=== PATIENT | male | born 1940 | race Caucasian/White ===

== ENCOUNTER 2017-05-17 14:55 | Inpatient (IN) ==
[2017-05-17] MEDS ORDERED: SALINE FLUSH 10ml SYRINGE IVF PRN (15:06)
--- NOTE | 2017-05-17 15:09 | Emergency Department Report ---
Dizziness HPI - General Chief Complaint: Dizziness Stated Complaint: near syncope Time Seen by Provider: 05/17/17 15:06 Source: patient, EMS - History of Present Illness HPI Narrative: Sudden onset of dizziness while driving. Patient does have a history of atrial fibrillation and is anticoagulated on xeralto and also takes sotalol. 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 He apparently was driving with his in the vehicle, started feeling dizzy and stopped the car and notified EMS who brought him to the ER. On scene, EMS reports patient was orthostatic with a 20 mm drop in systolic pressure from sitting to standing. Upon arrival to the ED orthostatics were repeated with blood pressure 117 to 111. Heart rate is 115-130 and atrial fib. EKG shows atrial fibrillation with RVR and RBBB which appears to be on previous EKG. Patient denies history of VT or stents. Patient was started on a 500 ml NS bolus and given cardizem 10 mg IV shortly after arrival to the ED. Heart rate slowed somewhat to 105-110 and patient did state that he was feeling better. Will obtain the lab results and call Dr Farhat. RODRIGUEZ complaint: dizziness Onset (ago): minute(s) Timing: sudden onset Description: lightheadedness History of similar episodes: Yes History of trauma: No Severity: moderate Exacerbating factors: movement - Related Data Home Medications Medication Instructions Recorded Confirmed Pravastatin Sodium 20 mg PO HS #0 01/21/12 05/17/17 Lisinopril 5 mg PO DAILY #0 02/04/14 05/17/17 Nitroglycerin [Nitrostat] 1 tab SL Q5MIN3 PRN #0 02/05/14 05/17/17 Furosemide 40 mg PO BID #0 tab 09/14/16 05/17/17 Potassium Chloride 20 meq PO BIDWM #0 09/14/16 05/17/17 Sotalol [Betapace] 120 mg PO BID #0 09/14/16 05/17/17 Calcium Citrate/Vitamin D3 2 tab PO DAILY 05/17/17 05/17/17 [Calcium Citrate-Vit D3 Caplet] Rivaroxaban [Xarelto] 20 mg PO DAILY 05/17/17 05/17/17 Allergies Allergy/AdvReac Type Severity Reaction Status Date / Time shellfish derived Allergy Unknown ITCHING, Verified 05/17/17 15:01 SWELLING Review of Systems All systems: reviewed and negative except as stated Constitutional: Reports: as per HPI, weakness (generalized ). Denies: fever, chills Eyes: Denies: eye pain, eye discharge ENT: Denies: ear pain, throat pain Cardiovascular: Denies: chest pain, palpitations, dyspnea on exertion Respiratory: Denies: cough, dyspnea, wheezes, hemoptysis Gastrointestinal: Denies: abdominal pain, nausea, vomiting Genitourinary: Denies: urgency, dysuria Musculoskeletal: Denies: back pain, joint swelling Neurological: Denies: headache, weakness, numbness, paresthesias PFSH Patient Stated Medical History Other HEENT Yes: WEARS GLASSES Cardiac Arrhythmia Yes: AFIB Hypertension Yes Sleep Apnea Yes Clinic Medical History Atrial fibrillation with RVR (Acute Medical) Course Course Narrative: 1600 Patient received 10 mg cardizem. HR continues at 105-120. Dr Blake would like patient to have 15 mg IV cardizem if blood pressure allows. and take his oral sotalol and cardizem. Patient will be admitted to hospitalist system. 1630; Heart rate is 98-102 ; blood pressure is 98 sys; will hold IV cardizem. - Reevaluation(s) Reevaluation #1: Heart rate improved some after cardizem and is at 105-110. Patient does state that his dizziness which had been present upon arrival is better. Continues to denies chest pain. - Consultations Consultation #1: Dr Blake Time: 16:00 (would like patient admitted to hospitalist service if possible /he will consult . Would like patient to receive a total of 15 mg cardizem if remains in RVR and would like him to also have po sotalol 120 mg and cardizem 180 mg po now. ) Consultation #2: Dr Pierre Time: 16:05 (will admit) Vital Signs Temperature 97.8 F 05/17/17 15:01 Pulse Rate 127 H 05/17/17 15:01 Respiratory Rate 19 05/17/17 15:01 Blood Pressure 114/69 05/17/17 15:01 Pulse Oximetry 93 05/17/17 15:01 Temperature 97.8 F 05/17/17 15:01 Pulse Rate 119 H 05/17/17 16:18 Respiratory Rate 19 05/17/17 15:01 Blood Pressure 117/59 05/17/17 15:17 Pulse Oximetry 93 05/17/17 15:01 Dizziness - Medical Records Attestation: I reviewed the patient's medical records. - Lab Data Result diagrams: 05/17/17 15:21 05/17/17 15:21 Lab Results 05/17/17 05/17/17 Range/Units 15:21 15:21 WBC 7.1 (4.5-11.0) T/MM3 Corrected WBC Cancelled RBC 5.24 (4.50-5.90) M/MM3 Hgb 15.5 (13.5-17.5) GM/DL Hct 46.4 (41-53) % MCV 88.5 (80-100) UM3 MCH 29.6 (26-34) UUG MCHC 33.4 (31-37) GM/DL RDW Std Deviation 40.6 (36.9-50.2) FL Plt Count 225 (130-400) T/MM3 MPV 9.1 L (9.4-12.4) UM3 Immature Gran % (Auto) 0.3 (0.0-0.5) % Neut % (Auto) 63.1 (33-66) % Lymph % (Auto) 22.7 L (23-45) % [place] % (Auto) 11.5 H (0-9.0) % Eos % (Auto) 2.0 (0-4) % Baso % (Auto) 0.4 (0-2) % Neut # (Auto) 4.5 (1.8-7.7) T/MM3 Lymph # (Auto) 1.6 (1-4.8) T/MM3 [place] # (Auto) 0.8 (0-0.8) T/MM3 Eos # (Auto) 0.1 (0-0.5) T/MM3 Baso # (Auto) 0.0 (0-0.2) T/MM3 Abs Immat Gran (auto) 0.02 (0.00-0.03) T/MM3 Neutrophils % (Manual) Cancelled Band Neutrophils % Cancelled Lymphocytes % (Manual) Cancelled Reactive Lymphs % Cancelled Monocytes % (Manual) Cancelled Eosinophils % (Manual) Cancelled Basophils % (Manual) Cancelled Metamyelocytes % Cancelled Myelocytes % Cancelled Promyelocytes % Cancelled Blast Cells % Cancelled Neutrophils # (Manual) Cancelled Band Neutrophils # Cancelled Lymphocytes # (Manual) Cancelled Abs React Lymphs (Man) Cancelled Monocytes # (Manual) Cancelled Eosinophils # (Manual) Cancelled Basophils # (Manual) Cancelled Metamyelocytes # Cancelled Myelocytes # Cancelled Promyelocytes # Cancelled Plasma Cell # (Manual) Cancelled Nucleated RBCs Cancelled Hypersegmented Neuts Cancelled Hyposegmented Neuts Cancelled Hypogranular Neuts Cancelled Prolymphocytes Cancelled Blast Cells # Cancelled Plasma Cells Cancelled Smudge Cells Cancelled Toxic Granulation Cancelled Toxic Vacuolation Cancelled Dohle Bodies Cancelled Coni Rods Cancelled Clumped Platelets Cancelled Giant Platelets Cancelled Dimorphic RBCs Cancelled Polychromasia Cancelled Hypochromasia Cancelled Poikilocytosis Cancelled Basophilic Stippling Cancelled Anisocytosis Cancelled Microcytosis Cancelled Macrocytosis Cancelled Spherocytes Cancelled Pappenheimer Bodies Cancelled Sickle Cells Cancelled Target Cells Cancelled Tear Drop Cells Cancelled Ovalocytes Cancelled Stomatocytes Cancelled Helmet Cells Cancelled [place] Bodies Cancelled [place] Rings Cancelled [place] Cells Cancelled Crenated Cell Cancelled Acanthocytes (Spur) Cancelled Rouleaux Cancelled Schistocytes Cancelled RBC Morph Comment Cancelled Turbidity < 20 (0-20) Sodium 139 (134-144) MEQ/L Potassium 4.1 (3.6-5) MEQ/L Chloride 105 (98-107) MEQ/L Carbon Dioxide 26 (22-30) MEQ/L Anion Gap 8 (5-15) MEQ/L BUN 20.0 (9-20) MG/DL Creatinine 1.2 (0.8-1.5) MG/DL GFR Calculation 59 BUN/Creatinine Ratio 17 (6-26) RATIO Glucose 98 (75-110) MG/DL Calculated Osmolality 271 (261-280) MOSM/KG Calcium 9.4 (8.4-10.2) MG/DL Total Bilirubin 0.30 (0.20-1.30) MG/DL Icterus Index < 2 (0-7) AST 33 (17-59) U/L ALT 58 (21-72) U/L Alkaline Phosphatase 89 (38-126) U/L Troponin I < 0.012 (0-0.12) ng/ml Total Protein 7.0 (6.3-8.2) G/DL Albumin 4.1 (3.5-5.0) G/DL Globulin 2.9 (2.4-3.6) G/DL Albumin/Globulin Ratio 1.4 (1.1-2.2) RATIO Specimen Hemolysis 20 (0-25) - Radiology Data Attestation: I reviewed the patient's radiology results. Disposition Clinical Impression: Atrial fibrillation with RVR Disposition: 02 To [facility] Time of Disposition: 16:14 - [facility]
[2017-05-17] MEDS ORDERED: DiltiaZEM 25 MG/5 ML INJECTION IVP ONE ×4 (15:18→16:20)
--- NOTE | 2017-05-17 15:50 | XRay Report ---
Indication: dizziness PROCEDURE: XR chest 1V: Encounter: Initial Comparison: Chest x-ray and chest CT dated September 14, 2016 Findings: Rectangular 1.3 cm density projecting over the right upper lung field is new from the prior study. This projects between the sixth and seventh posterior ribs. Prior right basilar airspace opacity has cleared. The prior right lower lobe pulmonary nodule seen on CT is not visible radiographically. No pleural effusion or pneumothorax. Cardiac silhouette remains enlarged. Left pacemaker. Mediastinal contours are stable. Pulmonary vascularity appears normal. Impression: 1. No pneumonia or congestive failure. 2. Possible new right upper lobe pulmonary nodule versus artifact or object external to the patient. Given the concerning appearing right lower lobe pulmonary nodule seen on the prior CT follow-up chest CT is recommended if this has not been performed recently. .
[2017-05-17] MEDS ORDERED: SOTALOL 120 MG TABLET PO ONE (16:08)
--- OUTSIDE RECORDS SUMMARY | 2017-05-17 16:32 | External Medical Summary | Referral Summary ---
:1940 Author Organization [facility] Address [address] [place] [address] [place] Jo[place] [id number] Care Team Providers Name Role Phone Abram Milligan Primary Care Physician Encounter VC Date(s): 11/17/14 - 11/17/14 [facility] [address] [place] [address] [place] [id number]- Discharge Diagnosis: Atrial fibrillation Discharge Diagnosis: Obstructive sleep apnea Discharge Diagnosis: Hypercholesterolemia. Discharge Diagnosis: Essential hypertension Discharge Disposition: 01-Home or Self Care Attending Physician: Abram Milligan MD Admitting Physician: Abram Milligan MD Vital Signs Most recent to oldest [Reference Range]: 1 Temperature Tympanic [36.6-38.1 degC] 36.1 degC *LOW* (11/17/14 9:57 AM) Peripheral Pulse Rate [60-100 bpm] 74 bpm (11/17/14 9:57 AM) Respiratory Rate [14-20 br/min] 16 br/min (11/17/14 9:57 AM) Blood Pressure [90-140/60-90 mmHg] 128/78 mmHg (11/17/14 9:57 AM) SpO2 94 % (11/17/14 9:57 AM) Problem List Condition Effective Dates Status Health Status Informant Pig bite to left calf(Confirmed) 1981 Active Atrial fibrillation(Confirmed) 2007 Active Benign essential Active hypertension(Confirmed) Cardiac dysrhythmia, Active unspecified(Confirmed) Diverticulosis(Confirmed) Active Long-term (current) use of Active anticoagulants(Confirmed) Hypothyroidism(Confirmed) Active Obesity(Confirmed) Active OA (osteoarthritis) of lower Active leg(Confirmed) Pure hypercholesterolemia(Confirmed) Active Elevated PSA(Confirmed) Active Sick sinus syndrome(Confirmed) Active Sleep apnea(Confirmed) Active Allergies, Adverse Reactions, Alerts Substance Reaction Severity Status shellfish Active Medications calcium (as citrate)-vitamin D 200 mg-250 intl units oral tablet tabs, Oral, BID, 0 Refill(s) Start Date: 03/03/14 Status: Orderedcarvedilol 25 mg oral tablet 1 tabs, Oral, BID, 0 Refill(s) Start Date: 01/22/14 Status: Orderedfinasteride 5 mg oral tablet See Instructions, TAKE 1 TABLET ONE TIME DAILY ( NEED MD APPOINTMENT WHEN MEDS RUN OUT), # 90 tabs, 1 Refill(s), eRx: [facility] , TAKE 1 TABLET ONE TIME DAILY ( NEED MD APPOINTMENT WHEN MEDS RUN OUT) Start Date: 03/09/15 Status: Orderedfurosemide 40 mg oral tablet 1 tabs, Oral, Daily, # 90 tabs, 0 Refill(s) Start Date: 01/22/14 Status: Orderedlisinopril 5 mg oral tablet 1 tabs, Oral, Daily, # 90 tabs, 0 Refill(s) Start Date: 01/22/14 Status: Orderedmultivitamin Daily, 0 Refill(s) Start Date: 03/03/14 Status: OrderedNitrostat 0.4 mg sublingual tablet 1 tabs, SubLingual, q5min, as needed for chest pain, # 100 tabs, 0 Refill(s) Start Date: 01/22/14 Status: Orderedpotassium chloride 20 mEq oral tablet, extended release 1 tabs, Oral, Daily, # 30 tabs, 0 Refill(s) Start Date: 01/22/14 Status: Orderedpravastatin 20 mg oral tablet See Instructions, TAKE 1 TABLET EVERY DAY, # 90 tabs, eRx: [facility], TAKE 1 TABLET EVERY DAY Start Date: 04/21/15 Status: OrderedVitamin C 0 Refill(s) Start Date: 03/03/14 Status: Ordered Results No data available for this section Immunizations Vaccine Date Refusal Reason influenza virus vaccine, inactivated 05/18/15 influenza virus vaccine, inactivated 03/04/14 influenza virus vaccine, live 06/10/13 influenza virus vaccine, live 06/05/12 pneumococcal 13-valent conjugate vaccine 05/18/15 pneumococcal 23-polyvalent vaccine 01/05/07 Procedures Procedure Date Related Diagnosis Body Site Cardiac Ablation 2014 Cardioversion1 2014 Ablation2013 Cardiac catheterization 2013 RENE 2014 Pacemaker insertion 10/08/12 Cardioversion3 2010 Colonoscopy 2007 Hernia repair 1993 Cystoscopy 1992 Dilation of urethra 1992 Hernia repair, left inguinal 1992 Lymphangitis 1949 1He had atrial fibrillation that was treated by cardioversion.2Pulmonary vein isolation and left atrial [id number] Social History Social History Type Response Smoking Status Never smoker Assessment and Plan Extracted from: Title: Ambulatory Patient Education Author: Abram Milligan MD Date: 11/17/14 Family Medicine Atrial Fibrillation Atrial fibrillation is a type of irregular heart rhythm (arrhythmia ). During atrial fibrillation, the upper chambers of the heart (atria ) quiver continuously in a chaotic pattern. This causes an irregular and often rapid heart rate. Atrial fibrillation is the result of the heart becoming overloaded with disorganized signals that tell it to beat. These signals are normally released one at a time by a part of the right atrium called the sinoatrial node. They then travel from the atria to the lower chambers of the heart (ventricles ), causing the atria and ventricles to contract and pump blood as they pass. In atrial fibrillation, p arts of the atria outside of the sinoatrial node also release these signals. This results in two problems. First, the atria receive so many signals that they do not have time to fully contract. Second, the ventricles, which can only receive one signal at a time, beat irregularly and out of rhythm with the atria. There are three types of atrial fibrillation: ParoxysmalParoxysmal atrial fibrillation starts suddenly and stops on its own within a week. PersistentPersistent atrial fibrillation lasts for more than a week. It may stop on its own or with treatment. PermanentPermanent atrial fibrillation does not go away. Episodes of atrial fibrillation may lead to permanent atrial fibrillation. Atrial fibrillation can prevent your heart from pumping blood normally. It increases your risk of stroke and can lead to heart failure. CAUSES Heart conditions, including a heart attack, heart failure, coronary artery disease, and heart valve conditions. Inflammation of the sac that surrounds the heart (pericarditis ). Blockage of an artery in the lungs (pulmonary embolism ). Pneumonia or other infections. Chronic lung disease. Thyroid problems, especially if the thyroid is overactive ( hyperthyroidism ). Caffeine, excessive alcohol use, and use of some illegal drugs. Use of some medications, including certain decongestants and diet pills. Heart surgery. defects. Sometimes, no cause can be found. When this happens, the atrial fibrillation is called lone atrial fibrillation. The risk of complications from atrial fibrillation increases if you have lone atrial fibrillation and you are age 60 years or older. RISK FACTORS Heart failure. Coronary artery disease Diabetes mellitus. High blood pressure (hypertension ). Obesity. Other arrhythmias. Increased age. SYMPTOMS A feeling that your heart is beating rapidly or irregularly. A feeling of discomfort or pain in your chest. Shortness of breath. Sudden lightheadedness or weakness. Getting tired easily when exercising. Urinating more often than normal (mainly when atrial fibrillation first begins). In paroxysmal atrial fibrillation, symptoms may start and suddenly stop. DIAGNOSIS Your caregiver may be able to detect atrial fibrillation when taking your pulse. Usually, testing is needed to diagnosis atrial fibrillation. Tests may include: Electrocardiography. During this test, the electrical impulses of your heart are recorded while you are lying down. Echocardiography. During echocardiography, sound waves are used to evaluate how blood flows through your heart. Stress test. There is more than one type of stress test. If a stress test is needed, ask your caregiver about which type is best for you. Chest X-ray exam. Blood tests. Computed tomography (CT). TREATMENT Treating any underlying conditions. For example, if you have an overactive thyroid, treating the condition may correct atrial fibrillation. Medication. Medications may be given to control a rapid heart rate or to prevent blood clots, heart failure, or a stroke. Procedure to correct the rhythm of the heart: Electrical cardioversion. During electrical cardioversion, a controlled, low-energy shock is delivered to the heart through your skin. If you have chest pain, very low pressure blood pressure, or sudden heart failure, this procedure may need to be done as an emergency. Catheter ablation. During this procedure, heart tissues that send the signals that cause atrial fibrillation are destroyed. Maze or minimaze procedure. During this surgery, thin lines of heart tissue that carry the abnormal signals are destroyed. The maze procedure is an open-heart surgery. The minimaze procedure is a minimally invasive surgery. This means that small cuts are made to access the heart instead of a large opening. Pulmonary venous isolation. During this surgery, tissue around the veins that carry blood from the lungs (pulmonary veins) is destroyed. This tissue is thought to carry the abnormal signals. HOME CARE INSTRUCTIONS Take medications as directed by your caregiver. Only take medications that your caregiver approves. Some medications can make atrial fibrillation worse or recur. If blood thinners were prescribed by your caregiver, take them exactly as directed. Too much can cause bleeding. Too little and you will not have the needed protection against stroke and other problems. Perform blood tests at home if directed by your caregiver. Perform blood tests exactly as directed. Quit smoking if you smoke. Do not drink alcohol. Do not drink caffeinated beverages such as coffee, soda, and some teas. You may drink decaffeinated coffee, soda, or tea. Maintain a healthy weight. Do not use diet pills unless your caregiver approves. They may make heart problems worse. Follow diet instructions as directed by your caregiver. Exercise regularly as directed by your caregiver. Keep all follow-up appointments. PREVENTION The following substances can cause atrial fibrillation to recur: Caffeinated beverages. Alcohol. Certain medications, especially those used for breathing problems. Certain herbs and herbal medications, such as those containing ephedra or ginseng. Illegal drugs such as cocaine and amphetamines. Sometimes medications are given to prevent atrial fibrillation from recurring. Proper treatment of any underlying condition is also important in helping prevent recurrence. SEEK MEDICAL CARE IF: You notice a change in the rate, rhythm, or strength of your heartbeat. You suddenly begin urinating more frequently. You tire more easily when exerting yourself or exercising. SEEK IMMEDIATE MEDICAL CARE IF: You develop chest pain, abdominal pain, sweating, or weakness. You feel sick to your stomach (nauseous ). You develop shortness of breath. You suddenly develop swollen feet and ankles. You feel dizzy. You face or limbs feel numb or weak. There is a change in your vision or speech. MAKE SURE YOU: Understand these instructions. Will watch your condition. Will get help right away if you are not doing well or get worse. Document Released: 07/03/2006 Document Revised: 10/28/2013 Document Reviewed: 08/13/2013 [employer] Patient Information 2014 [employer]. Follow Up With: Where: When: Abram Milligan [address] [place] [address] Drive; [facility] [place] [id number] adQ (1ViS In 3 months 02/17/2015 Comments: Extracted from: Title: Office Visit Note Author: Abram Milligan MD Date: 11/17/14 Assessment/Plan Atrial fibrillation This has not recurred since his last ablation treatment. He continues to follow up with Dr. Blake. Ordered: Office Visit Level 4 Est 95110 Essential hypertension This remains well controlled. He will continue his same medication. Ordered: Office Visit Level 4 Est 29452 Hypercholesterolemia. He will continue his same medication. Ordered: Office Visit Level 4 Est 74299 Obstructive sleep apnea He will continue CPAP.
--- OUTSIDE RECORDS SUMMARY | 2017-05-17 16:32 | External Medical Summary | Referral Summary ---
:1940 Author Organization [facility] Address [address] [place] [address] [place] [id number] Care Team Providers Name Role Phone Abram Milligan Primary Care Physician Encounter VC Date(s): 03/02/15 - 03/02/15 [facility] [address] [place] [address] [place] [id number]- Discharge Diagnosis: Rising PSA level Discharge Disposition: 01-Home or Self Care Attending Physician: Aime Sol JR, MD Admitting Physician: Aime Sol JR, MD Referring Physician: Abram Milligan MD Vital Signs Most recent to oldest [Reference Range]: 1 Peripheral Pulse Rate [60-100 bpm] 97 bpm (03/02/15 2:38 PM) Blood Pressure [90-140/60-90 mmHg] 122/78 mmHg (03/02/15 2:38 PM) Problem List Condition Effective Dates Status Health [...] OUT), # 90 tabs, 1 Refill(s), eRx: [facility] , TAKE 1 TABLET [...] TABLET EVERY DAY, # 90 tabs, eRx: [facility], TAKE 1 TABLET EVERY [...] Body Site Cardiac Ablation 2014 Cardioversion1 2014 Ablation2 2013 Cardiac catheterization 2013 RENE 2013 Pacemaker insertion 10/08/12 Cardioversion3 2010 Colonoscopy 2006 Hernia repair 1993 Cystoscopy 1992 Dilation of urethra 1992 Hernia repair, left inguinal 1992 Lymphangitis 194 1He had atrial fibrillation that was treated by cardioversion.2Pulmonary vein isolation and left atrial [id number] Social History Social History Type Response Smoking Status Never smoker Assessment and Plan Extracted from: Title: Ambulatory Patient Education Author: Aime Sol JR, MD Date: Follow Up With: Where: When: Abram Milligan [address]; [place] [address] Business (1) Within 3 to 5 days Comments: Follow Up With: Where: When: Aime Sol [address]; [place] [address] Business (1) In 1 month 04/02/2015 Comments: Extracted from: Title: Office Visit Note Author: Aime Sol JR, MD Date: 03/02/15 Assessment/Plan Rising PSA level continue taking finasteride. Patient was given instruction to get his blood test properly (PSA). If his PSA continues to rise he is going to be needing a prostate biopsy. Long-standing history of hypertension takes furosemide and lisinopril. Long-standing history of heart disease and he takes carvedilol and diltiazem. Continue taking the pravastatin for hypercholesterolemia. Will recheck in my office in 6 months, PSA a week before next visit. 15 minute face to face visit with 2/3 of the visit devoted to counseling. Ordered: Office Visit Level 3 Est 06857
--- OUTSIDE RECORDS SUMMARY | 2017-05-17 16:32 | External Medical Summary | Referral Summary ---
:1940 Author Organization [facility] Address [address] [place] [address] JOS[place] Jvoel [address] Care Team Providers Name Role Phone Abram Milligan Primary Care Physician Encounter VC ANNIE [id number] Date(s): 05/18/15 - 05/18/15 [facility] [address] [place] [address] J[place] Jovel [phone]- Discharge Diagnosis: Obstructive sleep apnea Discharge Diagnosis: PAF (paroxysmal atrial fibrillation) Discharge Diagnosis: Essential hypertension Discharge Diagnosis: Encounter for immunization Discharge Diagnosis: Hypercholesterolemia Discharge Diagnosis: Elevated PSA Discharge Disposition: 01-Home or Self Care Attending Physician: Abram Milligan MD Admitting Physician: Abram Milligan MD Vital Signs Most recent to oldest [Reference Range]: 1 Temperature Tympanic [36.6-38.1 degC] 36.4 degC *LOW* (05/18/15 1:12 PM) Peripheral Pulse Rate [60-100 bpm] 97 bpm (05/18/15 1:12 PM) Respiratory Rate [14-20 br/min] 20 br/min (05/18/15 1:12 PM) Blood Pressure [90-140/60-90 mmHg] 130/92 mmHg (05/18/15 1:12 PM) SpO2 92 % (05/18/15 1:12 PM) Problem List Condition Effective Dates Status [...] OUT), # 90 tabs, 1 Refill(s), eRx: [facility] , TAKE 1 TABLET [...] TABLET EVERY DAY, # 90 tabs, eRx: [facility], TAKE 1 TABLET EVERY [...] Diagnosis Body Site Cardiac Ablation 2014 Cardioversion1 2015 Ablation2 2013 Cardiac catheterization 2013 REEN 2013 Pacemaker insertion 10/08/12 Cardioversion3 2010 Colonoscopy 2006 Hernia repair 1993 Cystoscopy 1992 Dilation of urethra 1992 Hernia repair, left inguinal 1991 Lymphangitis 1948 1He had atrial fibrillation that was treated by cardioversion.2Pulmonary vein isolation and left atrial [id number] Social History Social History Type Response Smoking Status Never smoker Assessment and Plan Extracted from: Title: Ambulatory Patient Education Author: Abram Milligan MD Date: Family Medicine Hypertension Hypertension, commonly called high blood pressure, is when the force of blood pumping through your arteries is too strong. Your arteries are the blood vessels that carry blood from your heart throughout your body. A blood pressure reading consists of a higher number over a lower number, such as 110/72. The higher number (systolic) is the pressure inside your arteries when your heart pumps. The lower n umber (diastolic) is the pressure inside your arteries when your heart relaxes. Ideally you want your blood pressure below 120/80. Hypertension forces your heart to work harder to pump blood. Your arteries may become narrow or stiff. Having hypertension puts you at risk for heart disease, stroke, and other problems. RISK FACTORS Some risk factors for high blood pressure are controllable. Others are not. Risk factors you cannot control include: Race. You may be at higher risk if you are . Age. Risk increases with age. Gender. Men are at higher risk than women before age 45 years. After age 65, women are at higher risk than men. Risk factors you can control include: Not getting enough exercise or physical activity. Being overweight. Getting too much fat, sugar, calories, or salt in your diet. Drinking too much alcohol. SIGNS AND SYMPTOMS Hypertension does not usually cause signs or symptoms. Extremely high blood pressure (hypertensive crisis) may cause headache, anxiety, shortness of breath , and nosebleed. DIAGNOSIS To check if you have hypertension, your health care provider will measure your blood pressure while you are seated, with your arm held at the level of your heart. It should be measured at least twice us ing the same arm. Certain conditions can cause a difference in blood pressure between your right and left arms. A blood pressure reading that is higher than normal on one occasion does not mean that you need treatment. If one blood pressure reading is high, ask your health care provider about having it checked again. TREATMENT Treating high blood pressure includes making lifestyle changes and possibly taking medicine. Living a healthy lifestyle can help lower high blood pressure. You may need to change some of your habits. Lifestyle changes may include: Following the DASH diet. This diet is high in fruits, vegetables, and whole grains. It is low in salt, red meat, and added sugars. Getting at least 2 hours of brisk physical activity every week. Losing weight if necessary. Not smoking. Limiting alcoholic beverages. Learning ways to reduce stress. If lifestyle changes are not enough to get your blood pressure under control , your health care provider may prescribe medicine. You may need to take more than one. Work closely with your health care provider to understand the risks and benefits. HOME CARE INSTRUCTIONS Have your blood pressure rechecked as directed by your health care provider. Take medicines only as directed by your health care provider. Follow the directions carefully. Blood pressure medicines must be taken as prescribed. The medicine does not work as well when you skip doses. Skipping doses also puts you at risk for problems. Do not smoke. Monitor your blood pressure at home as directed by your health care provider. SEEK MEDICAL CARE IF: You think you are having a reaction to medicines taken. You have recurrent headaches or feel dizzy. You have swelling in your ankles. You have trouble with your vision. SEEK IMMEDIATE MEDICAL CARE IF: You develop a severe headache or confusion. You have unusual weakness, numbness, or feel faint. You have severe chest or abdominal pain. You vomit repeatedly. You have trouble breathing. MAKE SURE YOU: Understand these instructions. Will watch your condition. Will get help right away if you are not doing well or get worse. Document Released: 07/03/2006 Document Revised: 11/17/2014 Document Reviewed: 04/25/2014 ExitCare Patient Information 2015 [employer]. This information is not intended to replace advice given to you by your health care provider. Make sure you discuss any questions you have with your health care provider. Follow Up With: Where: When: Abram Milligan [address]; [facility] [place] [address] [employer] ([employer] In 4 months 09/16/2015 Comments: Extracted from: Title: Office Visit Note Author: Abram Milligan MD Date: 05/18/15 Assessment/Plan Elevated PSA He continues follow-up with Dr. Sol. Essential hypertension He will continue his present medication. Hypercholesterolemia Lab will be rescheduled in June. Ordered: Comprehensive Metabolic Panel Creatine Kinase Lipid Panel TSH 3rd Generation Immunization due He will receive influenza and Prevnar 13 immunizations today. Ordered: influenza virus vaccine, inactivated, 0.5 mL, IntraMuscular, Once, First Dose : 05/18/15 13:33:00 CUSTOM FRAMING SPECIALIST, Stop Date: 05/18/15 13:33:00 CUSTOM [employer]AMING SPECIALIST pneumococcal 13-valent conjugate vaccine, 0.5 mL, IntraMuscular, Once, First Dose: 05/18/15 14:00:00 CUSTOM FRAMING SPECIALIST, Stop Date: 05/18/15 14:00:00 CUSTOM FRAMING SPECIALIST, Form: Syringe Obstructive sleep apnea PAF (paroxysmal atrial fibrillation)
--- OUTSIDE RECORDS SUMMARY | 2017-05-17 16:34 | External Medical Summary | Referral Summary ---
:1940 Author Organization [facility] Address [address] [place] [address] J[place] Jovel [address] Care Team Providers Name Role Phone Abram Milligan Primary Care Physician Encounter VC Date(s): 11/17/14 - 11/17/14 [facility] [address] [place] [address] J[place] Jovel [phone]- Discharge Diagnosis: Atrial fibrillation Discharge Diagnosis: Obstructive [...] OUT), # 90 tabs, 1 Refill(s), eRx: [facility] , TAKE 1 TABLET [...] TABLET EVERY DAY, # 90 tabs, eRx: [facility], TAKE 1 TABLET EVERY [...] by cardioversion.2Pulmonary vein isolation and left atrial [id number] Social History Social History Type Response Smoking [...] Document Reviewed: 08/13/2013 ExitCare Patient Information 2014 [employer]. Follow Up With: Where: When: Abram Milligan [address] [place] [address] Drive; [facility] [place] [address] [employer] ([employer] In 3 months 02/17/2015 Comments: Extracted from: Title: Office Visit Note Author: Abram Milligan MD Date: 11/17/14 Assessment/Plan Atrial fibrillation This has not recurred since his last ablation treatment. He continues to follow up with Dr. Blake. Ordered: Office Visit Level 4 Est 97227 Essential hypertension This remains well controlled. He will continue his same medication. Ordered: Office Visit Level 4 Est 50656 Hypercholesterolemia. He will continue his same medication. Ordered: Office Visit Level 4 Est 30053 Obstructive sleep apnea He will continue CPAP.
--- OUTSIDE RECORDS SUMMARY | 2017-05-17 16:34 | External Medical Summary ---
:1940 Author Organization [employer] Care Team Providers Name Role Phone Carley Butterfield Provider Role Unavailable Allergies, Adverse Reactions, Alerts Substance Reaction Event Type N.K.D.A. Info Not Available Non Drug Allergy Problems Problem Type Condition Code Onset Dates Condition Status Assessment Pacemaker Z95.0 Active Assessment High risk medication use Z79.899 Active Assessment Chronic anticoagulation Z79.01 Active Problem Atrial flutter 427.32 Active Problem Chronic Anticoagulation V58.61 Active Problem Paroxysmal atrial fibrillation I48.0 Active Assessment Paroxysmal atrial fibrillation I48.0 Active Assessment Typical atrial flutter I48.3 Active Problem High Risk Med V58.69 Active Problem Atrial fibrillation 427.31 Active Medications Medication Code Code Instructions Start End Status Dosage System Date Date Vitamin C [facility] 48123-28 500 MG Orally not [place] 509 [place] [address]-99 5 MG Orally Once 1 tablet 66-01 a day Furosemide NDC 06993-21 40 MG Orally 1 tablet 99-25 Once [place] ([place] [address]-66 120 MG Orally Jul 21, 1 tablet 24-01 Twice a day 2015 [place] [address]-44 5 MG Orally Once 1 tablet 55-01 a day Multiple Vitamin NDC 50316-50 Orally not defined 30-30 Potassium NDC 0 20 meq orally qd 1 tablet [place] [address]-01 600-200 MG-UNIT 1 tablet 56-52 Orally [place] [address]-77 20 MG Orally 1 tablet 76-01 Once a [place] [address]-45 180 MG Orally 1 capsule Beads 13-03 [place] [address]-63 0.4 MG 1 tablet 97-25 Sublingual under the tongue and allow [place] [address]-89 20 MG Orally 1 tablet Sodium 01-10 Once a day Procedures Procedure Coding System Code Date Office Visit, Est Pt., Level 4 CPT-4 27573 February 02, 2016 Ofc Program PM Dual, Staff CPT-4 61698 February 02, 2016 ELECTROCARDIOGRAM, COMPLETE CPT-4 07846 February 02, 2016 Vital Signs Date/Time: February 02, 2016 BMI 46.02 Index Weight 330 lbs Height 71 in Cardiac Monitoring Heart Rate 98 /min Oximetry 95 % Blood Pressure Diastolic 80 mm Hg Blood Pressure Systolic 124 mm Hg Results Name Result Date Reference Range Unit Abnormality Flag AtriaECW Summary Purpose eClinicalWorks Submission
--- OUTSIDE RECORDS SUMMARY | 2017-05-17 16:34 | External Medical Summary ---
:1940 Author Organization [employer] Care Team Providers Name Role Phone Carley Butterfield Provider Role Unavailable Allergies, Adverse Reactions, Alerts Substance Reaction Event Type N.K.D.A. Info Not Available Non Drug Allergy Problems Problem Type Condition Code Onset Dates Condition Status Assessment High risk medication use Z79.899 Active Assessment Chronic anticoagulation Z79.01 Active Problem Atrial flutter 427.32 Active Problem Chronic Anticoagulation V58.61 Active Problem Paroxysmal atrial fibrillation I48.0 Active Assessment Paroxysmal atrial fibrillation I48.0 Active Assessment Typical atrial flutter I48.3 Active Problem High Risk Med V58.69 Active Problem Atrial fibrillation 427.31 Active Medications Medication Code Code Instructions Start End Status Dosage System Date Date Diltiazem HCl ER [facility] 87572-35 180 MG Orally 1 capsule Beads 13-03 Once a day Potassium [facility] 56421-29 20 meq orally 1 tablet chloride 81-[address] [facility] 67690-44 25 MG Orally 1 tablet 96-01 Twice a day with food Pravastatin [facility] 23662-16 20 MG Orally 1 tablet Sodium 01-10 Once a day Flecainide [facility] 05722-40 100 MG Orally 1 tablet Acetate 11-21 every [address] [facility] 52934-02 5 MG Orally Once 1 tablet 66-01 a day Finasteride [facility] 06823-81 5 MG Orally Once 1 tablet 55-01 a day Nitroglycerin [facility] 10362-74 0.4 MG 1 tablet 97-25 Sublingual under the tongue [place] [address]-62 40 MG Orally 1 tablet 99-25 Twice a day Sotalol HCl (AF) [facility] 13408-11 120 MG Orally Jul 21, 1 tablet 24-01 Twice a day [address] [facility] 10464-91 Orally not defined 30-[address] [facility] 59950-28 500 MG Orally not defined 509 Calcium + D [facility] 61063-73 600-200 MG-UNIT 1 tablet 56-52 Orally Once a with food day Xarelto [facility] 38385-00 20 MG Orally 1 tablet 76-01 Once a day with food Procedures Procedure Coding System Code Date Office Visit, Est Pt., Level 4 CPT-4 84326 Jul 21, 2015 Ofc Program PM Dual, Staff CPT-4 30053 Jul 21, 2015 ELECTROCARDIOGRAM, COMPLETE CPT-4 37910 Jul 21, 2015 Vital Signs Date/Time: Jul 21, 2015 BMI 47.28 Index Weight 339 lbs Height 71 in Cardiac Monitoring Heart Rate 96 /min Oximetry 95 % Blood Pressure Diastolic 70 mm Hg Blood Pressure Systolic 102 mm Hg Results Name Result Date Reference Range Unit Abnormality Flag Atria ECG Summary Purpose eClinicalWorks Submission
--- OUTSIDE RECORDS SUMMARY | 2017-05-17 16:34 | External Medical Summary | Referral Summary ---
:1940 Author Organization [facility] Address [address] [place] [address] [place] Jovel [address] Care Team Providers Name Role Phone Chicho Aldana Primary Care Physician Encounter VC Date(s): 09/04/15 - 09/04/15 [facility] [address] [place] [address] [place] [address] [place] Discharge Diagnosis: Coronary artery disease Discharge Diagnosis: Atrial fibrillation Discharge Diagnosis: BPH with elevated PSA Discharge Diagnosis: Benign essential hypertension Discharge Diagnosis: Hypercholesterolemia Discharge Diagnosis: Obesity Discharge Diagnosis: Stable angina Discharge Disposition: 01-Home or Self Care Attending Physician: Aime Sol JR, MD Admitting Physician: Aime Sol JR, MD Vital Signs Most recent to oldest [Reference Range]: 1 Peripheral Pulse Rate [60-100 bpm] 92 bpm (09/04/15 2:05 PM) Blood Pressure [90-140/60-90 mmHg] 122/88 mmHg (09/04/15 2:05 PM) Problem List Condition Effective Dates Status Health Status Informant Pig bite to left calf(Confirmed) 1981 Active Atrial fibrillation(Confirmed) 2007 Active Benign essential Active hypertension(Confirmed) Chronic kidney disease Active (CKD)(Confirmed) Cardiac dysrhythmia, Active unspecified(Confirmed) Diverticulosis(Confirmed) Active Long-term (current) use of Active anticoagulants(Confirmed) Hypothyroidism(Confirmed) Active Elevated blood sugar(Confirmed) Active Obesity(Confirmed) Active OA (osteoarthritis) of lower Active leg(Confirmed) Pure hypercholesterolemia(Confirmed) Active Elevated PSA(Confirmed) Active Sick sinus syndrome(Confirmed) Active Sleep apnea(Confirmed) Active Allergies, Adverse Reactions, Alerts Substance Reaction Severity Status shellfish Active Medications calcium (as citrate)-vitamin D 200 mg-250 intl units oral tablet tabs, Oral, BID, 0 Refill(s) Start Date: 03/03/14 Status: Ordereddiltiazem 120 mg oral tablet mg tabs, Oral, TID, 0 Refill(s) Start Date: 09/04/15 Status: Orderedfinasteride 5 mg oral tablet See Instructions, TAKE 1 TABLET ONE TIME DAILY ( NEED MD APPOINTMENT WHEN MEDS RUN OUT), # 90 tabs, 1 Refill(s), eRx: [facility] , TAKE 1 TABLET [...] 01/22/14 Status: Orderedpravastatin 20 mg oral tablet 20 mg 1 tabs, Oral, Daily, X 90 days, # 90 tabs, 1 Refill(s), Pharmacy: [facility], 1 tabs Oral Daily,x90 days Start Date: 07/29/15 Stop Date: 01/25/16 Status: Orderedsotalol 120 mg oral tablet 120 mg 1 tabs, Oral, BID, # 60 tabs, 0 Refill(s) Start Date: 07/28/15 Status: OrderedVitamin C 0 Refill(s) Start Date: 03/03/14 Status: OrderedXarelto 20 mg oral tablet 20 mg 1 tabs, Oral, qPM, # 30 tabs, 0 Refill(s) Start Date: 09/04/15 Status: Ordered Results No data available for this section Immunizations Vaccine Date Refusal Reason influenza virus vaccine, inactivated 05/18/15 influenza virus vaccine, inactivated 03/04/14 influenza virus vaccine, live 06/10/13 influenza virus vaccine, live 06/05/12 pneumococcal 13-valent conjugate vaccine 05/18/15 pneumococcal 23-polyvalent vaccine 01/05/07 Procedures Procedure Date Related Diagnosis Body Site Cardiac Ablation 2014 Cardioversion1 2015 Ablation2 2013 Cardiac catheterization 2013 RENE 2013 Pacemaker insertion 10/08/12 Cardioversion3 2010 Colonoscopy 2006 Hernia repair 1993 Cystoscopy 1992 Dilation of urethra 1992 Hernia repair, left inguinal 1991 Lymphangitis 1949 1He had atrial fibrillation that was treated by cardioversion.2Pulmonary vein isolation and left atrial [id number] Social History Social History Type Response Smoking Status Never smoker Assessment and Plan Extracted from: Title: Ambulatory Patient Education Author: Aime Sol JR, MD Date: Follow Up With: Where: When: Chicho Aldana [address] [place] [address] Drive; [place] [address] Business (1) Within 3 to 5 days Comments: Follow Up With: Where: When: Aime Carbajal[address]; [place] [address] Business (1) In 6 months 03/04/2016 Comments: Extracted from: Title: Office Visit Note Author: Aime Sol JR, MD Date: 09/04/15 Assessment/Plan 1.BPH with elevated PSA His PSA is 4.7 which is slightlyabove normal. Denies any family history of prostate cancer. There is no prostatic nodule felt. Patientis presently taking finaster iglesia. Patient is voiding well. I to see him again in 6 months PSA a week before next visit or to come and see me soonerif having troubles with urination. Proper instruction was given to the patient with a proper collection of the PSA 2.Atrial fibrillation Continue carvediloland diltiazem 3.Obesity Patient had lost 10 pounds already since I saw him 6 months ago. 4.Benign essential hypertension Couldn'tcontinue lisinopril pyelogram tabletdaily, Ordered: Office Visit Level 3 Est 60171 5.Coronary artery disease Continue carvedilol Ordered: Office Visit Level 3 Est 67491 6.Stable angina Continue Nitrostat 0.4 mg sublingual when necessary Ordered: Office Visit Level 3 Est 47345 7.Hypercholesterolemia Continue pravastatin 20 mg tablet daily Ordered: Office Visit Level 3 Est 19415
--- OUTSIDE RECORDS SUMMARY | 2017-05-17 16:35 | External Medical Summary | Referral Summary ---
:1940 Author Organization [facility] Address [address] [place] [address] [place] [address] Care Team Providers Name Role Phone Abram Milligan Primary Care Physician Encounter VC Date(s): 11/17/14 - 11/17/14 [facility] [address] [place] [address] [place] [phone]- Discharge Diagnosis: Atrial fibrillation Discharge Diagnosis: Obstructive [...] OUT), # 90 tabs, 1 Refill(s), eRx: [facility] , TAKE 1 TABLET [...] TABLET EVERY DAY, # 90 tabs, eRx: [facility], TAKE 1 TABLET EVERY [...] by cardioversion.2Pulmonary vein isolation and left atrial [id number] Social History Social History Type Response Smoking [...] Document Reviewed: 08/13/2013 ExitCare Patient Information 2014 [employer]. Follow Up With: Where: When: Abram Milligan [address] [place] [address] Drive; Via [facility] [place] [address] [employer] In 3 months 02/17/2015 Comments: Extracted from: Title: Office Visit Note Author: Abram Milligan MD Date: 11/17/14 Assessment/Plan Atrial fibrillation This has not recurred since his last ablation treatment. He continues to follow up with Dr. Blake. Ordered: Office Visit Level 4 Est 54142 Essential hypertension This remains well controlled. He will continue his same medication. Ordered: Office Visit Level 4 Est 21993 Hypercholesterolemia. He will continue his same medication. Ordered: Office Visit Level 4 Est 34721 Obstructive sleep apnea He will continue CPAP.
--- OUTSIDE RECORDS SUMMARY | 2017-05-17 16:35 | External Medical Summary | Referral Summary ---
:1940 Author Organization [facility] Address [address] [place] [address] [place] [address] Care Team Providers Name Role Phone Chicho Aldana Primary Care Physician Encounter VC Date(s): 02/17/15 - 02/17/15 [facility] [address] [place] [address] [place] [phone] [place] Discharge Diagnosis: Essential hypertension Discharge Diagnosis: Cardiac arrhythmia Discharge Diagnosis: Hypercholesterolemia. Discharge Diagnosis: Obstructive sleep apnea Discharge Disposition: 01-Home or Self Care Attending Physician: Abram Milligan MD Referring Physician: Abram Milligan MD Vital Signs Most recent to oldest [Reference Range]: 1 Temperature Tympanic [36.6-38.1 degC] 36.9 degC (02/17/15 9:36 AM) Peripheral Pulse Rate [60-100 bpm] 93 bpm (02/17/15 9:36 AM) Blood Pressure [90-140/60-90 mmHg] 134/84 mmHg (02/17/15 9:36 AM) SpO2 97 % (02/17/15 9:36 AM) Problem List Condition Effective Dates Status [...] BID, 0 Refill(s) Start Date: 03/03/14 Status: Orderedfinasteride 5 mg oral tablet See Instructions, TAKE 1 TABLET ONE TIME DAILY ( NEED MD APPOINTMENT WHEN MEDS RUN OUT), # 90 tabs, 1 Refill(s), eRx: [facility] , TAKE 1 TABLET [...] days, # 90 tabs, 1 Refill(s), Pharmacy: [facility], 1 tabs Oral Daily,x90 [...] by cardioversion.2Pulmonary vein isolation and left atrial [id number] Social History Social History Type Response Smoking Status Never smoker Assessment and Plan Extracted from: Title: Ambulatory Patient Education Author: Abram Milligan MD Date: 02/17/15 Family Medicine Hypertension Hypertension, commonly called high [...] includes making lifestyle changes and possibly taking medication. Living a healthy lifestyle can help lower high blood pressure. You may need to change some of your habits. Lifestyle changes may include: Following the DASH diet. This diet is high in fruits, vegetables, and whole grains. It is low in salt, red meat, and added sugars. Getting at least 2 1/2 hours of brisk physical activity every week. [...] as directed by your health care provider. Only take medicine as directed by your health care provider. [...] get worse. Document Released: 07/03/2006 Document Revised: 07/08/2014 Document Reviewed: 04/25/2014 ExitCare Patient Information 2015 [employer]. This information is not intended to replace advice given to you by your health care provider. Make sure you discuss any questions you have with your health care provider. Follow Up With: Where: When: Abram Milligan [address]; Via [facility] [place] [id number] Online Prasad (1Shotlst In 3 months 05/20/2015 Comments: Extracted from: Title: Office Visit Note Author: Abram Milligan MD Date: 02/17/15 Assessment/Plan Cardiac arrhythmia This has remained stable. Essential hypertension This is well controlled. He will continue his same medication. Hypercholesterolemia. Lab will be rescheduled. Ordered: Creatine Kinase LDL Direct Obstructive sleep apnea He will continue CPAP.
--- OUTSIDE RECORDS SUMMARY | 2017-05-17 16:37 | External Medical Summary | Referral Summary ---
:1940 Author Organization [facility] Address [address] [place] [address] [place] [phone] Care Team Providers Name Role Phone Abram Milligan Primary Care Physician Encounter VC Date(s): 03/02/15 - 03/02/15 [facility] [address] [place] [address] [place] [phone]- Discharge Diagnosis: Rising PSA level Discharge Disposition: 01-Home or Self Care Attending Physician: Aime Sol JR, MD Admitting Physician: Aime Sol JR, MD Referring Physician: Abram Millgian MD Vital Signs Most recent to oldest [...] OUT), # 90 tabs, 1 Refill(s), eRx: [facility] , TAKE 1 TABLET [...] TABLET EVERY DAY, # 90 tabs, eRx: [facility], TAKE 1 TABLET EVERY [...] by cardioversion.2Pulmonary vein isolation and left atrial [id number] Social History Social History Type Response Smoking Status Never smoker Assessment and Plan Extracted from: Title: Ambulatory Patient Education Author: Aime Sol JR, MD Date: Follow Up With: Where: When: Abram Milligan [address]; [place] [address] Business (1) Within 3 to 5 days Comments: Follow Up With: Where: When: Aime Sol [address]; [place] [address] Business (1) In 1 month 04/02/2015 Comments: [...] counseling. Ordered: Office Visit Level 3 Est 14734
--- OUTSIDE RECORDS SUMMARY | 2017-05-17 16:37 | External Medical Summary | Referral Summary ---
:1940 Author Organization [facility] Address [address] [place] [address] [place] [address] Care Team Providers Name Role Phone Abram Milligan Primary Care Physician Encounter VC Date(s): 03/02/15 - 03/02/15 [facility] [address] [place] [address] [place] [phone]- Discharge Diagnosis: Rising PSA level Discharge Disposition: [...] OUT), # 90 tabs, 1 Refill(s), eRx: [facility] , TAKE 1 TABLET [...] TABLET EVERY DAY, # 90 tabs, eRx: [facility], TAKE 1 TABLET EVERY [...] by cardioversion.2Pulmonary vein isolation and left atrial [id number] Social History Social History Type Response Smoking Status Never smoker Assessment and Plan Extracted from: Title: Ambulatory Patient Education Author: Aime Sol JR, MD Date: Follow Up With: Where: When: Abram Milligan [address]; [place] [address] Business (1) Within 3 to 5 days Comments: Follow Up With: Where: When: Aime Sol [address]; [place] [address] Business (1) In 1 month 04/02/2015 Comments: [...] counseling. Ordered: Office Visit Level 3 Est 43120
--- OUTSIDE RECORDS SUMMARY | 2017-05-17 16:37 | External Medical Summary | Referral Summary ---
:1940 Author Organization [facility] Address [address] [place] [address] [place] [address] Care Team Providers Name Role Phone Abram Milligan Primary Care Physician Encounter VC Date(s): 03/02/15 - 03/02/15 [facility] [address] [place] [address] [place] [phone] Discharge Diagnosis: Rising PSA level Discharge Disposition: [...] OUT), # 90 tabs, 1 Refill(s), eRx: [facility] , TAKE 1 TABLET [...] TABLET EVERY DAY, # 90 tabs, eRx: [facility], TAKE 1 TABLET EVERY [...] by cardioversion.2Pulmonary vein isolation and left atrial [id number] Social History Social History Type Response Smoking Status Never smoker Assessment and Plan Extracted from: Title: Ambulatory Patient Education Author: Aime Sol JR, MD Date: Follow Up With: Where: When: Abram Milligan [address]; [place] [address] Business (1) Within 3 to 5 days Comments: Follow Up With: Where: When: Aime Sol [address]; [place] [address] Business (1) In 1 month 04/02/2015 Comments: [...] counseling. Ordered: Office Visit Level 3 Est 76593
--- OUTSIDE RECORDS SUMMARY | 2017-05-17 16:37 | External Medical Summary | Referral Summary ---
:1940 Author Organization [facility], [place] Address [address], [facility] [address] [place] [address] Care Team Providers Name Role Phone Chicho Aldana Primary Care Physician Encounter VC Date(s): 02/19/15 - 02/19/15 [facility], [place] [address], [facility] [address] [place] [address]- Discharge Diagnosis: Obstructive sleep apnea, adult Discharge Disposition: 01-Home or Self Care Attending Physician: Pineda Perea MD Admitting Physician: Pineda Perea MD Referring Physician: Abram Milligan MD Vital Signs Most recent to oldest [Reference Range]: 1 Peripheral Pulse Rate [60-100 bpm] 83 bpm (02/19/15 10:02 AM) Blood Pressure [90-140/60-90 mmHg] 106/60 mmHg (02/19/15 10:02 AM) SpO2 92 % (02/19/15 10:02 AM) Problem List Condition Effective Dates Status [...] OUT), # 90 tabs, 1 Refill(s), eRx: [facility] , TAKE 1 TABLET [...] days, # 90 tabs, 1 Refill(s), Pharmacy: [facility], 1 tabs Oral Daily,x90 [...] Cardioversion1 2014 Ablation2013 Cardiac catheterization 2013 RENE 2013 Pacemaker insertion 3/25/13 Cardioversion3 2010 Colonoscopy 2006 Hernia repair 1993 Cystoscopy 1992 Dilation of urethra 1992 Hernia repair, left inguinal 1992 Lymphangitis 1949 1He had atrial fibrillation that was treated by cardioversion.2Pulmonary vein isolation and left atrial [id number] Social History Social History Type Response Smoking Status Never smoker Assessment and Plan Extracted from: Title: Office Visit Note Author: Pineda Perea MD Date: 02/19/15 Assessment/Plan Obstructive sleep apnea, adult Assessment: The patient is complying well with CPAP. He is not snoring and he feels rested. By those criteria, his sleep apnea is adequately controlled, and no changes are needed. Plan: We reviewed his compliance download. Several questions about equipment replacement were answered. He will continue at the current pressure with his current mask. [facility] as [facility].
--- OUTSIDE RECORDS SUMMARY | 2017-05-17 16:39 | External Medical Summary | Referral Summary ---
:1940 Author [facility] Address [address] [place] [address] [place] [address] Care Team Providers Name Role Phone Chicho Aldana Primary Care Physician Encounter VC Date(s): 03/28/16 - 03/28/16 [facility] [place] [phone] [place] Discharge Disposition: 01-Home or Self Care Attending Physician: Chicho Aldana MD Admitting Physician: Chicho Aldana MD Vital Signs Most recent to oldest [Reference Range]: 1 Blood Pressure [90-140/60-90 mmHg] 120/80 mmHg (03/28/16 9:30 AM) Problem List Condition Effective Dates Status Health Status Informant Pig bite to left calf(Confirmed) 1981 Active Chronic pain of right knee(Confirmed) Active Atrial fibrillation(Confirmed) 2007 Active Benign essential [...] 03/03/14 Status: Ordereddiltiazem 120 mg oral tablet 120 mg 1 tabs, Oral, TID, # 270 tabs, 1 Refill(s), Pharmacy: [email or web address], 1 tabs Oral TID Start Date: 03/28/16 Status: Orderedfinasteride 5 mg oral tablet See Instructions, TAKE 1 TABLET ONE TIME DAILY ( NEED MD APPOINTMENT WHEN MEDS RUN OUT), # 90 tabs, 3 Refill(s), eRx: [facility], TAKE 1 TABLET ONE TIME DAILY ( NEED MD APPOINTMENT WHEN MEDS RUN OUT) Start Date: 09/07/15 Status: Orderedfurosemide 40 mg oral tablet 40 mg 1 tabs, Oral, Daily, # 90 tabs, 1 Refill(s), Pharmacy: [facility], 1 tabs Oral Daily Start Date: 03/28/16 Status: Orderedlisinopril 5 mg oral tablet 5 mg 1 tabs, Oral, Daily, # 90 tabs, 1 Refill(s), Pharmacy: [facility], 1 tabs Oral Daily Start Date: 03/28/16 Status: Orderedmultivitamin Daily, 0 Refill(s) Start Date: [...] tablet 20 mg 1 tabs, Oral, Daily, # 90 tabs, 1 Refill(s), Pharmacy: [facility], 1 tabs Oral Daily Start Date: 03/28/16 Status: Orderedsotalol 120 mg oral tablet 120 [...] Date Refusal Reason influenza virus vaccine, inactivated 03/28/16 influenza virus vaccine, inactivated 05/18/15 influenza virus [...] by cardioversion.2Pulmonary vein isolation and left atrial [id number] Social History Social History Type Response Smoking Status Never smoker Assessment and Plan Extracted from: Title: Ambulatory Patient Education Author: Chicho Aldana MD Date: Cardiovascular Atrial Fibrillation Atrial fibrillation is a type of irregular heart rhythm (arrhythmia). During atrial fibrillation, the upper chambers of the heart (atria) quiver continuously in a chaotic pattern. This [...] to the lower chambers of the heart (ventricles), causing the atria and ventricles to contract and pump blood as they pass. In atrial fibrillation, pa rts of the atria outside of the sinoatrial node also release these signals. This results in two problems. First, the atria receive so many signals that they do not have time to fully contract. Second, t he ventricles, which can only receive one signal at a time, beat irregularly and out of rhythm with the atria. There are three types of atrial fibrillation: Paroxysmal. Paroxysmal atrial fibrillation starts suddenly and stops on its own within a week. Persistent. Persistent atrial fibrillation lasts for more than a week. It may stop on its own or with treatment. Permanent. Permanent atrial fibrillation does not go away. Episodes of atrial fibrillation may lead to permanent atrial fibrillation. Atrial fibrillation can prevent your heart from pumping blood normally. It increases your risk of stroke and can lead to heart failure. CAUSES Heart conditions, including a heart attack, heart failure, coronary artery disease, and heart valve conditions. Inflammation of the sac that surrounds the heart (pericarditis). Blockage of an artery in the lungs (pulmonary embolism). Pneumonia or other infections. Chronic lung disease. Thyroid problems, especially if the thyroid is overactive ( hyperthyroidism). Caffeine, excessive alcohol use, and use of some illegal drugs. Use of some medicines, including certain decongestants and diet pills. Heart surgery. defects. Sometimes, no cause can be found. When this happens, the atrial fibrillation is called lone atrial fibrillation. The risk of complications from atrial fibrillation increases if you have lone atrial fibrillation and you are age 60 years or older. RISK FACTORS Heart failure. Coronary artery disease. Diabetes mellitus. High blood pressure (hypertension). Obesity. Other arrhythmias. Increased age. SIGNS AND SYMPTOMS A feeling that your heart is beating rapidly or irregularly. A feeling of discomfort or pain in your chest. Shortness of breath. Sudden light-headedness or weakness. Getting tired easily when exercising. Urinating more often than normal (mainly when atrial fibrillation first begins). In paroxysmal atrial fibrillation, symptoms may start and suddenly stop. DIAGNOSIS Your health care provider may be able to detect atrial fibrillation when taking your pulse. Your health care provider may have you take a test called an ambulatory electrocardiogram (ECG). An ECG record s your heartbeat patterns over a 24-hour period. You may also have other tests , such as: Transthoracic echocardiogram (TTE). During echocardiography, sound waves are used to evaluate how blood flows through your heart. Transesophageal echocardiogram (RENE). Stress test. There is more than one type of stress test. If a stress test is needed, ask your health care provider about which type is best for you. Chest X-ray exam. Blood tests. Computed tomography (CT). TREATMENT Treatment may include: Treating any underlying conditions. For example, if you have an overactive thyroid, treating the condition may correct atrial fibrillation. Taking medicine. Medicines may be given to control a rapid heart rate or to prevent blood clots, heart failure, or a stroke. Having a procedure to correct the rhythm of the heart: Electrical cardioversion. During electrical cardioversion, a controlled , low-energy shock is delivered to the heart through your skin. If you have chest pain, very low blood pressure, or sudden h eart failure, this procedure may need to be done as an emergency. Catheter ablation. During this procedure, heart tissues that send the signals that cause atrial fibrillation are destroyed. Surgical ablation. During this surgery, thin lines of heart tissue that carry the abnormal signals are destroyed. This procedure can either be an open- heart surgery or a minimally invasive surger y. With the minimally invasive surgery, small cuts are made to access the heart instead of a large opening. Pulmonary venous isolation. During this surgery, tissue around the veins that carry blood from the lungs (pulmonary veins) is destroyed. This tissue is thought to carry the abnormal signals. HOME CARE INSTRUCTIONS Take medicines only as directed by your health care provider. Some medicines can make atrial fibrillation worse or recur. If blood thinners were prescribed by your health care provider, take them exactly as directed. Too much blood-thinning medicine can cause bleeding. If you take too little, you will not have the n eeded protection against stroke and other problems. Perform blood tests at home if directed by your health care provider. Perform blood tests exactly as directed. Quit smoking if you smoke. Do not drink alcohol. Do not drink caffeinated beverages such as coffee, soda, and some teas. You may drink decaffeinated coffee, soda, or tea. Maintain a healthy weight.Do not use diet pills unless your health care provider approves. They may make heart problems worse. Follow diet instructions as directed by your health care provider. Exercise regularly as directed by your health care provider. Keep all follow-up visits as directed by your health care provider. This is important. PREVENTION The following substances can cause atrial fibrillation to recur: Caffeinated beverages. Alcohol. Certain medicines, especially those used for breathing problems. Certain herbs and herbal medicines, such as those containing ephedra or ginseng. Illegal drugs, such as cocaine and amphetamines. Sometimes medicines are given to prevent atrial fibrillation from recurring. Proper treatment of any underlying condition is also important in helping prevent recurrence. SEEK MEDICAL CARE IF: You notice a change in the rate, rhythm, or strength of your heartbeat. You suddenly begin urinating more frequently. You tire more easily when exerting yourself or exercising. SEEK IMMEDIATE MEDICAL CARE IF: You have chest pain, abdominal pain, sweating, or weakness. You feel nauseous. You have shortness of breath. You suddenly have swollen feet and ankles. You feel dizzy. Your face or limbs feel numb or weak. You have a change in your vision or speech. MAKE SURE YOU: Understand these instructions. Will watch your condition. Will get help right away if you are not doing well or get worse. This information is not intended to replace advice given to you by your health care provider. Make sure you discuss any questions you have with your health care provider. Document Released: 07/03/2006 Document Revised: 07/24/2015 Document Reviewed: 08/13/2013 ExitCare Patient Information 2016 [employer]. No follow up information was provided. Extracted from: Title: Office Visit Note Author: Chicho Aldana MD Date: 03/28/16 Assessment/Plan Atrial fibrillation This issue was reviewed, appears stable, and current therapy continued except as mentioned. Appropriate lab was reviewed from the most recent appropriate entry and lab was ordere d if needed in the cpoe/nursing orders, and follow up recommended generally in 90 days and no later then six months. Seeing Cardiology and Dr. Blake. Benign essential hypertension This issue was reviewed, appears stable, and current therapy continued except as mentioned. Appropriate lab was reviewed from the most recent appropriate entry and lab was ordered if needed in the cpoe/nursing orders, and follow up recommended generally in 90 days and no later then six months. The patient reports their blood pressure has been stable at home and is not having any significant or related problems. There has been no chest pain, chest pressure, soa/rojas. Chronic kidney disease (CKD) This issue was reviewed, appears stable, and current therapy continued except as mentioned. Appropriate lab was reviewed from the most recent appropriate entry and lab w as ordered if needed in the cpoe/nursing orders, and follow up recommended generally in 90 days and no later then six months. Avoid nsaids. Chronic pain of right knee We discussed several options for treatment for this condition. The patient declined any changes or other treatments at this time. Xray pending. Meds and consult offered and declined for now. Elevated blood sugar This issue was reviewed, appears stable, and current therapy continued except as mentioned. Appropriate lab was reviewed from the most recent appropriate entry and lab was order ed if needed in the cpoe/nursing orders, and follow up recommended generally in 90 days and no later then six months. Lab pending. Elevated PSA Lab back to normal. Has seendDr. [place] inthe past and has appt pending with Dr. Cruz. OA (osteoarthritis) of lower leg This issue was reviewed, appears stable, and current therapy continued except as mentioned. Appropriate lab was reviewed from the most recent appropriate entry and l ab was ordered if needed in the cpoe/nursing orders, and follow up recommended generally in 90 days and no later then six months. Meds offered and declined. L TKR in the pastis stable. Obesity Diet and exercise as tolerated and feasible. Consider medication when interested. Pure hypercholesterolemia This issue was reviewed, appears stable, and current therapy continued except as mentioned. Appropriate lab was reviewed from the most recent appropriate entry and lab was ordered if needed in the cpoe/nursing orders, and follow up recommended generally in 90 days and no later then six months. Lab pending. The patient was given the vaccines requested per protocol and according to those needed for school/family/college/etc. Flu vaccine per request.
--- OUTSIDE RECORDS SUMMARY | 2017-05-17 16:39 | External Medical Summary | Referral Summary ---
:1940 Author Organization [facility] Address [address] [place] [address] [place] [phone] Care Team Providers Name Role Phone Abram Milligan Primary Care Physician Encounter VC Date(s): 11/17/14 - 11/17/14 [facility] [address] [place] [address] [place] [phone] [place] Discharge Diagnosis: Atrial fibrillation Discharge Diagnosis: Obstructive [...] OUT), # 90 tabs, 1 Refill(s), eRx: [facility] , TAKE 1 TABLET [...] TABLET EVERY DAY, # 90 tabs, eRx: [facility], TAKE 1 TABLET EVERY [...] 2014 Ablation2 2013 Cardiac catheterization 2013 RENE 2014 Pacemaker insertion 10/08/12 Cardioversion3 2010 Colonoscopy 2007 Hernia repair 1993 Cystoscopy 1992 Dilation of urethra 1992 Hernia repair, left inguinal 1992 Lymphangitis 1949 1He had atrial fibrillation that was treated by cardioversion.2Pulmonary vein isolation and left atrial [id number] Social History Social History Type Response Smoking [...] 07/03/2006 Document Revised: 10/28/2013 Document Reviewed: 08/13/2013 [facility] Patient Information 2014 [employer]. Follow Up With: Where: When: Abram Milligan [address] [place] [address] Drive; Via [facility] [place] [id number] [email or web address] ([email or web address] In 3 months 02/17/2015 Comments: Extracted from: Title: Office Visit Note Author: Abram Milligan MD Date: 11/17/14 Assessment/Plan Atrial fibrillation This has not recurred since his last ablation treatment. He continues to follow up with Dr. Blake. Ordered: Office Visit Level 4 Est 81003 Essential hypertension This remains well controlled. He will continue his same medication. Ordered: Office Visit Level 4 Est 92451 Hypercholesterolemia. He will continue his same medication. Ordered: Office Visit Level 4 Est 61370 Obstructive sleep apnea He will continue CPAP.
--- OUTSIDE RECORDS SUMMARY | 2017-05-17 16:39 | External Medical Summary | Referral Summary ---
:1940 Author Organization [facility] Address [address] [place] [address] [place] [phone] Care Team Providers Name Role Phone Abram Milligan Primary Care Physician Encounter VC Date(s): 11/17/14 - 11/17/14 [facility] [address] [place] [address] [place] [phone]- Discharge Diagnosis: Atrial fibrillation Discharge Diagnosis: Obstructive [...] OUT), # 90 tabs, 1 Refill(s), eRx: [email or web address] , TAKE 1 TABLET [...] TABLET EVERY DAY, # 90 tabs, eRx: [email or web address], TAKE 1 TABLET EVERY [...] by cardioversion.2Pulmonary vein isolation and left atrial [id number] Social History Social History Type Response Smoking [...] Document Reviewed: 08/13/2013 ExitCare Patient Information 2014 [place]. Follow Up With: Where: When: Abram Milligan [address] [place] [address] Drive; Via [facility] [place] Sever[place] [address] [address] ([employer] In 3 months 02/17/2015 Comments: Extracted from: Title: Office Visit Note Author: Abram Milligan MD Date: 11/17/14 Assessment/Plan Atrial fibrillation This has not recurred since his last ablation treatment. He continues to follow up with Dr. Blake. Ordered: Office Visit Level 4 Est 09708 Essential hypertension This remains well controlled. He will continue his same medication. Ordered: Office Visit Level 4 Est 04295 Hypercholesterolemia. He will continue his same medication. Ordered: Office Visit Level 4 Est 65780 Obstructive sleep apnea He will continue CPAP.
--- OUTSIDE RECORDS SUMMARY | 2017-05-17 16:39 | External Medical Summary | Referral Summary ---
:1940 Author Organization [facility] Address [address] [place] [address] [place] [phone] Care Team Providers Name Role Phone Abram Milligan Primary Care Physician Encounter VC Date(s): 11/17/14 - 11/17/14 [facility] [address] [place] [address] [place] [phone] Discharge Diagnosis: Atrial fibrillation Discharge Diagnosis: Obstructive [...] OUT), # 90 tabs, 1 Refill(s), eRx: [facility] , TAKE 1 TABLET [...] TABLET EVERY DAY, # 90 tabs, eRx: [facility], TAKE 1 TABLET EVERY [...] by cardioversion.2Pulmonary vein isolation and left atrial [id number] Social History Social History Type Response Smoking [...] Document Reviewed: 08/13/2013 ExitCare Patient Information 2014 [employer]. Follow Up With: Where: When: Abram Milligan [address] [place] [address] Drive; Via [facility] [place] [id number] [address] ([employer] In 3 months 02/17/2015 Comments: Extracted from: Title: Office Visit Note Author: Abram Milligan MD Date: 11/17/14 Assessment/Plan Atrial fibrillation This has not recurred since his last ablation treatment. He continues to follow up with Dr. Blake. Ordered: Office Visit Level 4 Est 32404 Essential hypertension This remains well controlled. He will continue his same medication. Ordered: Office Visit Level 4 Est 71192 Hypercholesterolemia. He will continue his same medication. Ordered: Office Visit Level 4 Est 87634 Obstructive sleep apnea He will continue CPAP.
--- OUTSIDE RECORDS SUMMARY | 2017-05-17 16:39 | External Medical Summary ---
[...] Start End Status Dosage System Date Date Pravastatin [facility] 67566-81 20 MG Orally 1 tablet Sodium 01-10 Once a day Nitroglycerin [facility] 55866-90 0.4 MG 1 tablet 97-25 Sublingual under the tongue [place] allow [place] [address]-17 500 MG Orally not defined 509 [place] [address]-41 40 MG Orally 1 tablet 99-25 Once a day Potassium NDC 0 20 meq orally qd 1 tablet [place] S[place] ([place] [address]-98 120 MG Orally Jul 21, 1 tablet 24-01 Twice a day 2015 [place] [address]-74 100 MG Orally 1 tablet Acetate 11-21 every 12 [place] [address]-40 Orally not defined 30-30 [place] [address]-46 5 MG Orally Once 1 tablet 66-01 [place] [address]-43 600-200 MG-UNIT 1 tablet 56-52 Orally [place] [address]-16 20 MG Orally 1 tablet 76-01 [place] [address]-26 5 MG Orally Once 1 tablet 55-01 [place] [address]-55 180 MG Orally 1 capsule Beads -03 Once a day Procedures Procedure Coding System Code Date Office Visit, Est Pt., Level 4 CPT-4 86128 Aug 04, 2015 Ofc Program PM Dual, Staff CPT-4 64124 Aug 04, 2015 ELECTROCARDIOGRAM, COMPLETE CPT-4 07264 Aug 04, 2015 Vital Signs Date/Time: Aug 04, 2015 BMI 46.36 Index Weight 332.4 lbs Height 71 in Cardiac Monitoring Heart Rate 95 /min Oximetry 93% % Blood Pressure Diastolic 70 mm Hg Blood Pressure Systolic 110 mm Hg Results No Known Results Summary Purpose eClinicalWorks Submission
--- OUTSIDE RECORDS SUMMARY | 2017-05-17 16:39 | External Medical Summary | Referral Summary ---
:1940 Author Organization [facility] Address [address] [place] [address] [place] Jo[place] [address] Care Team Providers Name Role Phone Abram Milligan Primary Care Physician Encounter VC Date(s): 03/02/15 - 03/02/15 [facility] [address] [place] [address] [place] [phone]- Discharge Diagnosis: Rising PSA level Discharge Disposition: [...] OUT), # 90 tabs, 1 Refill(s), eRx: [facility] , TAKE 1 TABLET [...] TABLET EVERY DAY, # 90 tabs, eRx: [facility], TAKE 1 TABLET EVERY [...] by cardioversion.2Pulmonary vein isolation and left atrial [id number] Social History Social History Type Response Smoking Status Never smoker Assessment and Plan Extracted from: Title: Ambulatory Patient Education Author: Aime Sol JR, MD Date: Follow Up With: Where: When: Abram Milligan [address]; [place] [address] Business (1) Within 3 to 5 days Comments: Follow Up With: Where: When: Aime Sol [address]; [place] [address] Business (1) In 1 month 04/02/2015 Comments: [...] counseling. Ordered: Office Visit Level 3 Est 20416
--- OUTSIDE RECORDS SUMMARY | 2017-05-17 16:39 | External Medical Summary | Referral Summary ---
:1940 Author Organization [facility] [place] [address] Care Team Providers Name Role Phone Chicho Aldana Primary Care Physician Encounter VC Date(s): 07/28/15 - 07/28/15 [facility] [place] [phone] [phone] Discharge Disposition: 01-Home or Self Care Attending Physician: Chicho Aldana MD Admitting Physician: Chicho Aldana MD Vital Signs Most recent to oldest [Reference Range]: 1 Blood Pressure [90-140/60-90 mmHg] 110/80 mmHg (07/28/15 8:06 AM) Problem List Condition Effective Dates Status [...] OUT), # 90 tabs, 1 Refill(s), eRx: [facility] , TAKE 1 [...] TABLET EVERY DAY, # 90 tabs, eRx: [facility], TAKE 1 TABLET EVERY DAY Start Date: 04/21/15 Status: OrderedpredniSONE 20 mg oral tablet 20 mg 1 tabs, Oral, Daily, X 5 days, # 5 tabs, 0 Refill(s), Pharmacy: [id number], 1 tabsOral Daily,x5 days Start Date: 07/28/15 Stop Date: 08/02/15 Status: Orderedsotalol 120 mg oral tablet 120 [...] 1992 Hernia repair, left inguinal 1992 Lymphangitis 1948 1He had atrial fibrillation that was treated by cardioversion.2Pulmonary vein isolation and left atrial [id number] Social History Social History Type Response Smoking Status Never smoker Assessment and Plan Extracted from: Title: Ambulatory Patient Education Author: Chicho Aldana MD Date: Family Medicine Cholesterol Cholesterol is a white, waxy, fat-like substance needed by your body in small amounts. The liver makes all the cholesterol you need. Cholesterol is carried from the liver by the blood through the blood vessels. Deposits of cholesterol (plaque) may build up on blood vessel marie. These make the arteries narrower and stiffer. Cholesterol plaques increase the risk for heart attack and stroke. You cannot feel your cholesterol level even if it is very high. The only way to know it is high is with a blood test. Once you know your cholesterol levels, you should keep a record of the test results. Work with your health care provider to keep your levels in the desired range. WHAT DO THE RESULTS MEAN? Total cholesterol is a rough measure of all the cholesterol in your blood. LDL is the so-called bad cholesterol. This is the type that deposits cholesterol in the marie of the arteries. You want this level to be low. HDL is the good cholesterol because it cleans the arteries and carries the LDL away. You want this level to be high. Triglycerides are fat that the body can either burn for energy or store. High levels are closely linked to heart disease. WHAT ARE THE DESIRED LEVELS OF CHOLESTEROL? Total cholesterol below 200. LDL below 100 for people at risk, below 70 for those at very high risk. HDL above 50 is good, above 60 is best. Triglycerides below 150. HOW CAN I LOWER MY CHOLESTEROL? Diet. Follow your diet programs as directed by your health care provider. Choose fish or white meat chicken and turkey, roasted or baked. Limit fatty cuts of red meat, fried foods, and processed meats, such as sausage and lunch meats. Eat lots of fresh fruits and vegetables. Choose whole grains, beans, pasta, potatoes, and cereals. Use only small amounts of olive, corn, or canola oils. Avoid butter, mayonnaise, shortening, or palm kernel oils. Avoid foods with trans fats. Drink skim or nonfat milk and eat low-fat or nonfat yogurt and cheeses. Avoid whole milk, cream, ice cream, egg yolks, and full-fat cheeses. Healthy desserts include natalie food cake, alba snaps, animal crackers, hard candy, popsicles, and low-fat or nonfat frozen yogurt. Avoid pastries, cakes, pies, and cookies. Exercise. Follow your exercise programs as directed by your health care provider. A regular program helps decrease LDL and raise HDL. A regular program helps with weight control. Do things that increase your activity level like gardening, walking, or taking the stairs. Ask your health care provider about how you can be more active in your daily life. Medicine. Take medicine only as directed by your health care provider. Medicine may be prescribed by your health care provider to help lower cholesterol and decrease the risk for heart disease. If you have several risk factors, you may need medicine even if your levels are normal. Document Released: 03/28/2002 Document Revised: 11/17/2014 Document Reviewed: 04/16/2014 [facility] Patient Information 2015 [place]. This information is not intended to replace advice given to you by your health care provider. Make sure you discuss any questions you have with your health care provider. No follow up information was provided. Extracted from: Title: Office Visit Note Author: Chicho Aldana MD Date: 07/28/15 Assessment/Plan Acute URI Zpack and prednisone 20mg po daily for five days was given. Benign essential hypertension This issue was reviewed, appears stable, and current therapy continued except as mentioned. Appropriate lab was reviewed from the most recent appropriate entry and lab was ordered if needed in the cpoe/nursing orders, and follow up recommended generally in 90 days and no later then six months. The patient reports their blood pressure has been stable at home and i s not having any significant or related problems. There has been no chest pain , chest pressure, soa/rojas. Refill when needed. Cardiac pacemaker This issue was reviewed, appears stable, and current therapy continued except as mentioned. Appropriate lab was reviewed from the most recent appropriate entry and lab was ordered if needed in the cpoe/nursing orders, and follow up recommended generally in 90 days and no later then six [address] Blake and another specialist. Chronic kidney disease (CKD) This issue was reviewed, appears stable, and current therapy continued except as mentioned. Appropriate lab was reviewed from the most recent appropriate entry and l ab was ordered if needed in the cpoe/nursing orders, and follow up recommended generally in 90 days and no later then six months. No nsaids. Lab reviewed. Elevated blood sugar This issue was reviewed, appears stable, and current therapy continued except as mentioned. Appropriate lab was reviewed from the most recent appropriate entry and lab was o rdered if needed in the cpoe/nursing orders, and follow up recommended generally in 90 days and no later then six months. Lab reviewed and stable. Elevated PSA This issue was reviewed, appears stable, and current therapy continued except as mentioned. Appropriate lab was reviewed from the most recent appropriate entry and lab was ordered if ne eded in the cpoe/nursing orders, and follow up recommended generally in 90 days and no later then six months[address] BERMUDEZ and has pending appt. No symptoms. Hypothyroidism This issue was reviewed, appears stable, and current therapy continued except as mentioned. Appropriate lab was reviewed from the most recent appropriate entry and lab was ordered if needed in the cpoe/nursing orders, and follow up recommended generally in 90 days and no later then six months. Lab stable. OA (osteoarthritis) of lower leg This issue was reviewed, appears stable, and current therapy continued except as mentioned. Appropriate lab was reviewed from the most recent appropriate entry and l ab was ordered if needed in the cpoe/nursing orders, and follow up recommended generally in 90 days and no later then six months. Pure hypercholesterolemia This issue was reviewed, appears stable, and current therapy continued except as mentioned. Appropriate lab was reviewed from the most recent appropriate entry and lab was ordered if needed in the cpoe/nursing orders, and follow up recommended generally in 90 days and no later then six months. Lab stable. Sick sinus syndrome This issue was reviewed, appears stable, and current therapy continued except as mentioned. Appropriate lab was reviewed from the most recent appropriate entry and lab was ordere d if needed in the cpoe/nursing orders, and follow up recommended generally in 90 days and no later then six months. Se[address] Blake. Orders: predniSONE, 20 mg 1 tabs, Oral, Daily, X 5 days, # 5 tabs, 0 Refill(s ), Pharmacy: [id number], 1 tabs Oral Daily,x5 days
--- OUTSIDE RECORDS SUMMARY | 2017-05-17 16:39 | External Medical Summary | Referral Summary ---
:1940 Author Organization [facility] Address [address] [place] [address] [place] [phone] Care Team Providers Name Role Phone Chicho Aldana Primary Care Physician Encounter VC Date(s): 03/02/15 - 03/02/15 [facility] [address] [place] [address] [place] [phone]- Discharge Diagnosis: Rising PSA level Discharge Disposition: [...] OUT), # 90 tabs, 3 Refill(s), eRx: [facility], TAKE 1 TABLET ONE TIME DAILY ( NEED MD APPOINTMENT WHEN MEDS RUN OUT) Start Date: 09/07/15 Status: Orderedfurosemide 40 mg oral tablet 1 [...] days, # 90 tabs, 1 Refill(s), Pharmacy: [facility], 1 tabs Oral Daily,x90 [...] vaccine, live 06/10/13 influenza virus vaccine, live 11/20/12 pneumococcal 13-valent conjugate vaccine 05/18/15 pneumococcal 23-polyvalent vaccine 01/05/07 Procedures Procedure Date Related Diagnosis Body Site Cardiac Ablation 2014 Cardioversion1 2014 Ablation2 2013 Cardiac catheterization 2013 RENE 2013 Pacemaker insertion 10/08/12 Cardioversion3 2010 Colonoscopy 2006 Hernia repair 1993 Cystoscopy 1992 Dilation of urethra 1992 Hernia repair, left inguinal 1991 Lymphangitis 194 1He had atrial fibrillation that was treated by cardioversion.2Pulmonary vein isolation and left atrial [id number] Social History Social History Type Response Smoking Status Never smoker Assessment and Plan Extracted from: Title: Ambulatory Patient Education Author: Aime Sol JR, MD Date: Follow Up With: Where: When: Abram Milligan [address]; [place] [address] Business (1) Within 3 to 5 days Comments: Follow Up With: Where: When: Aime Carbajal [address]; [address] [facility] [place] [address] Business (1) In 1 month 04/02/2015 Comments: [...] counseling. Ordered: Office Visit Level 3 Est 65818
--- OUTSIDE RECORDS SUMMARY | 2017-05-17 16:39 | External Medical Summary | Referral Summary ---
:1940 [facility] Address [address] [place] [address] [place] [id number] Care Team Providers Name Role Phone Chicho Aldana Primary Care Physician Encounter VC Date(s): 11/26/15 - 11/26/15 [facility] [place] [phone] [place] Discharge Disposition: 01-Home or Self Care Attending Physician: Chicho Aldana MD Admitting Physician: Chicho Aldana MD Vital Signs Most recent to oldest [Reference Range]: 1 Blood Pressure [90-140/60-90 mmHg] 120/70 mmHg (11/26/15 9:26 AM) Problem List Condition Effective Dates Status [...] OUT), # 90 tabs, 3 Refill(s), eRx: [facility], TAKE 1 TABLET ONE [...] days, # 90 tabs, 1 Refill(s), Pharmacy: [facility], 1 tabs Oral Daily,x90 [...] Ablation 2014 Cardioversion1 2014 Ablation2013 Cardiac catheterization 2014 RENE 2014 Pacemaker insertion 10/08/12 Cardioversion3 2010 Colonoscopy 2007 Hernia repair 1993 Cystoscopy 1992 Dilation of urethra 1992 Hernia repair, left inguinal 1991 Lymphangitis 1949 1He had atrial fibrillation that was treated by cardioversion.2Pulmonary vein isolation and left atrial [id number] Social History Social History Type Response Smoking Status Never smoker Assessment and Plan Extracted from: Title: Ambulatory Patient Education Author: Chicho Aldana MD Date: Family Medicine Arthritis, Nonspecific Arthritis is inflammation of a joint. This usually means pain, redness, warmth or swelling are present. One or more joints may be involved. There are a number of types of arthritis. Your caregiver may n ot be able to tell what type of arthritis you have right away. CAUSES The most common cause of arthritis is the wear and tear on the joint ( osteoarthritis). This causes damage to the cartilage, which can break down over time. The knees, hips, back and neck are most often affected by this type of arthritis. Other types of arthritis and common causes of joint pain include: Sprains and other injuries near the joint. Sometimes minor sprains and injuries cause pain and swelling that develop hours later. Rheumatoid arthritis. This affects hands, feet and knees. It usually affects both sides of your body at the same time. It is often associated with chronic ailments, fever, weight loss and general weakness. Crystal arthritis. Gout and pseudo gout can cause occasional acute severe pain, redness and swelling in the foot, ankle, or knee. Infectious arthritis. Bacteria can get into a joint through a break in overlying skin. This can cause infection of the joint. Bacteria and viruses can also spread through the blood and affect your joints. Drug, infectious and allergy reactions. Sometimes joints can become mildly painful and slightly swollen with these types of illnesses. SYMPTOMS Pain is the main symptom. Your joint or joints can also be red, swollen and warm or hot to the touch. You may have a fever with certain types of arthritis, or even feel overall ill. The joint with arthritis will hurt with movement. Stiffness is present with some types of arthritis. DIAGNOSIS Your caregiver will suspect arthritis based on your description of your symptoms and on your exam. Testing may be needed to find the type of arthritis: Blood and sometimes urine tests. X-ray tests and sometimes CT or MRI scans. Removal of fluid from the joint (arthrocentesis) is done to check for bacteria, crystals or other causes. Your caregiver (or a specialist) will numb the area over the joint with a local anestheti c, and use a needle to remove joint fluid for examination. This procedure is only minimally uncomfortable. Even with these tests, your caregiver may not be able to tell what kind of arthritis you have. Consultation with a specialist (tile machine operator) may be helpful. TREATMENT Your caregiver will discuss with you treatment specific to your type of arthritis. If the specific type cannot be determined, then the following general recommendations may apply. Treatment of severe joint pain includes: Rest. Elevation. Anti-inflammatory medication (for example, ibuprofen) may be prescribed. Avoiding activities that cause increased pain. Only take qafh-pav-dxrwywd or prescription medicines for pain and discomfort as recommended by your caregiver. Cold packs over an inflamed joint may be used for 10 to 15 minutes every hour. Hot packs sometimes feel better, but do not use overnight. Do not use hot packs if you are diabetic without your caregiver's permission. A cortisone shot into arthritic joints may help reduce pain and swelling. Any acute arthritis that gets worse over the next 1 to 2 days needs to be looked at to be sure there is no joint infection. Long-term arthritis treatment involves modifying activities and lifestyle to reduce joint stress jarring. This can include weight loss. Also, exercise is needed to nourish the joint cartilage and remove waste. This helps keep the muscles around the joint strong. HOME CARE INSTRUCTIONS Do not take aspirin to relieve pain if gout is suspected. This elevates uric acid levels. Only take boht-vjb-zjjyeef or prescription medicines for pain, discomfort or fever as directed by your caregiver. Rest the joint as much as possible. If your joint is swollen, keep it elevated. Use crutches if the painful joint is in your leg. Drinking plenty of fluids may help for certain types of arthritis. Follow your caregiver's dietary instructions. Try low-impact exercise such as: Swimming. Water aerobics. Biking. Walking. Morning stiffness is often relieved by a warm shower. Put your joints through regular zteju-do-qqwulu. SEEK MEDICAL CARE IF: You do not feel better in 24 hours or are getting worse. You have side effects to medications, or are not getting better with treatment. SEEK IMMEDIATE MEDICAL CARE IF: You have a fever. You develop severe joint pain, swelling or redness. Many joints are involved and become painful and swollen. There is severe back pain and/or leg weakness. You have loss of bowel or bladder control. This information is not intended to replace advice given to you by your health care provider. Make sure you discuss any questions you have with your health care provider. Document Released: 08/10/2005 Document Revised: 04/21/2015 Document Reviewed: 08/26/2009 [facility] Patient Information 2015 [email or web address]. No follow up information was provided. Extracted from: Title: Office Visit Note Author: Chicho Aldana MD Date: 11/26/15 Assessment/Plan Atrial fibrillation This issue was reviewed, appears stable, and current therapy continued except as mentioned. Appropriate lab was reviewed from the most recent appropriate entry and lab was ordere d if needed in the cpoe/nursing orders, and follow up recommended generally in 90 days and no later then six months. Seeing Dr. Blake and lizzy. Benign essential hypertension This issue was reviewed, [...] no later then six months. No nsaids. Elevated blood sugar This issue was reviewed, appears stable, and current therapy continued except as mentioned. Appropriate lab was reviewed from the most recent appropriate entry and lab was order ed if needed in the cpoe/nursing orders, and follow up recommended generally in 90 days and no later then six months. Lab stable. Elevated PSA Seeing Dr. BERMUDEZ. ssessmadhu/Plan 1.BPH with elevated PSA His PSA is 4.7 which is slightlyabove normal. Denies any family history of prostate cancer. There is no prostatic nodule felt. Patientis presently taking finasteride. Patient is void ing well. I to see him again in 6 months PSA a week before next visit or to come and see me soonerif having troubles with urination. Proper instruction was given to the patient with a proper collection of the PSA [1] Hypothyroidism This issue was reviewed, appears stable, [...] days and no later then six months. Obesity Diet and exercise as tolerated and feasible. Consider medication when interested. Sick sinus syndrome This issue was reviewed, appears stable, and current therapy continued except as mentioned. Appropriate lab was reviewed from the most recent appropriate entry and lab was ordere d if needed in the cpoe/nursing orders, and follow up recommended generally in 90 days and no later then six months. [address] Blake and stable on xarelto. Samples of the new medication were provided as a courtesy. Side effects were discussed and follow up was recommended. Xarelto given as a courtesy. Sleep apnea This issue was reviewed, appears stable, and current therapy continued except as mentioned. Appropriate lab was reviewed from the most recent appropriate entry and lab was ordered if nee ded in the cpoe/nursing orders, and follow up recommended generally in 90 days and no later then six months. Using cpap.
--- NOTE | 2017-05-17 17:03 | History & Physical Report ---
<Tiffanie Jenkins - Last Filed: 05/17/17 16:56> History of Present Illness Date: 05/17/17 Chief complaint: dizziness HPI: Patient is a 77 yo male with known h/o atrial fibrillation who had some blurry vision earlier today, followed by some numbness and a headache which he reports is typical for his migraines. States he was feeling this way around noon. Around 2pm, he was driving to [place] and felt that his vision went dark for about 5 seconds. Had some dizziness associated with it as well. When he got to [place] they called EMS and he was found to have afib w/ RVR with pulse of 115 -130. He has had no chest pain or SOA. He was brought to ER and given NS bolus of 500mg and 10mg IV Cardizem which brought pulse down to 100's and he is feeling better. EKG shows afib with RVR, RBBB (on previous EKG.) No h/o MD or stents. Has had ablation x [address] Butterfield. Is on Xarelto chronically since PE in September 30. Of note, patient had a finding on CT in September 2016 thought to be a pulmonary nodule which was followed up with PET scan, which, per patient, was negative. Review of Systems All systems PM: 10-point ROS was reviewed, no additional remarkable complaints except - Constitutional Constitutional: Present: headache(s) (R sided - improved now) - EENMT Eyes: Present: loss of vision ("vision went black" for 5-10 sec per pt.) - Cardiovascular Vascular: Present: pedal edema (chronic L>R) - Neurological Neurological: Present: dizziness, loss of vision [facility] Medical History Atrial fibrillation with RVR Chronic anticoagulation with Xarelto Left heart failure HTN Migraine headaches Surgical History: L hernia repair. LTKA 07/2009. pacemaker implantation. cardiac ablation x 2 (Dr. 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 Aldana Speech And Hearing Director - Dr. Blake [place] - Dr. Butterfield Medications Home Medications Medication Instructions Recorded Confirmed Type Pravastatin Sodium 20 mg PO HS #0 01/21/12 05/17/17 History Lisinopril 5 mg PO DAILY #0 02/04/14 05/17/17 History Nitroglycerin [Nitrostat] 1 tab SL [id number] PRN #0 02/05/14 05/17/17 History Furosemide 40 mg PO BID #0 tab 09/14/16 05/17/17 History Potassium Chloride 20 meq PO BIDWM #0 09/14/16 05/17/17 History Sotalol [Betapace] 120 mg PO BID #0 09/14/16 05/17/17 History Calcium Citrate/Vitamin D3 2 tab PO DAILY 05/17/17 05/17/17 History [Calcium Citrate-Vit D3 Caplet] Rivaroxaban [Xarelto] 20 mg PO DAILY 05/17/17 05/17/17 History Allergies Allergy/AdvReac Type Severity Reaction Status Date / Time shellfish derived Allergy Unknown ITCHING, Verified 05/17/17 15:01 SWELLING Exam Vital Signs: Temperature 97.8 F 05/17/17 15:01 Pulse Rate 119 H 05/17/17 16:18 Respiratory Rate 19 05/17/17 15:01 Blood Pressure 117/59 05/17/17 15:17 Pulse Oximetry 93 05/17/17 15:01 - Constitutional Present: no acute distress, well nourished, well developed, morbidly obese - Routine HEENT Exam Head: Present: normocephalic, atraumatic Eye: Present: EOMI, PERRL (ptosis of L eye) ENT: Present: mucous membranes moist, oropharynx clear - Routine Neck Exam Present: supple. Absent: lymphadenopathy, thyromegaly - Routine Respiratory Exam Present: CTA bilaterally. Absent: wheezes - Routine Cardiovascular Exam Present: irregularly irregular. Absent: murmur - Routine Abdominal Exam Present: soft, normoactive bowel sounds, non distended. Absent: tenderness - Routine Extremities Exam Present: edema (2+L, 1+R ), normal capillary refill - Routine Skin Exam Present: dry, warm - Routine Neurological Exam Present: alert, oriented X3, CN II-XII intact - Routine Psychiatric Exam Present: normal affect, cooperative Results - Labs CBC & Chem 7: 05/17/17 15:21 05/17/17 15:21 Labs: Laboratory Tests 05/17/17 05/17/17 15:16 15:21 Magnesium 2.1 AST 33 ALT 58 Alkaline Phosphatase 89 Troponin I < 0.012 B-Natriuretic Peptide 338 H - Imaging and Cardiology Chest x-ray Additional comments: Date of Exam: 05/17/17 Ordering Provider: Kenzie Milligan APRN Type of Exam(s): XR chest 1V Reason for Exam(s): dizziness Indication: dizziness PROCEDURE: XR chest 1V: Encounter: Initial Comparison: Chest x-ray and chest CT dated September 14, 2016 Findings: Rectangular 1.3 cm density projecting over the right upper lung field is new from the prior study. This projects between the sixth and seventh posterior ribs. Prior right basilar airspace opacity has cleared. The prior right lower lobe pulmonary nodule seen on CT is not visible radiographically. No pleural effusion or pneumothorax. Cardiac silhouette remains enlarged. Left pacemaker. Mediastinal contours are stable. Pulmonary vascularity appears normal. Impression: 1. No pneumonia or congestive failure. 2. Possible new right upper lobe pulmonary nodule versus artifact or object external to the patient. Given the concerning appearing right lower lobe pulmonary nodule seen on the prior CT follow-up chest CT is recommended if this has not been performed recently. Assessment and Plan (1) Atrial fibrillation with RVR Current visit: Yes Status: Acute (2) HTN (hypertension) Current visit: Yes Status: Acute (3) Essential (primary) hypertension Current visit: Yes Status: Acute Assessment and Plan: Assessment Atrial fibrillation with RVR Chronic anticoagulation with Xarelto CHF HTN Migraine headaches Plan Admit to hospitalist service under observation status for telemetry and rate control. Dr. Black attending. Consult placed to Dr. Blake. Christinarelgiuliano for VTE prophylaxis and chronic anticoagulation given his a-fib Follow serial troponins, repeat Mag, CBC and BMP in am. Continue home meds. Care to return to Dr. Aldana at time of discharge. Patient wishes to be a full code. Hospital Course Summary Disclaimer: The visit summary below is not to be considered part of the above Progress Note. Hospital Course: Assessment Atrial fibrillation with RVR Chronic anticoagulation with Xarelto CHF HTN Migraine headaches 05/17/17 - hospital admission for observation Admit to hospitalist service under observation status for telemetry and rate control. Dr. Black attending. Consult placed to Dr. Blake. Xarelto for VTE prophylaxis and chronic anticoagulation given his a-fib Follow serial troponins, repeat Mag, CBC and BMP in am. Continue home meds. Care to return to Dr. Aldana at time of discharge. Patient wishes to be a full code. <Xavier Black D - Last Filed: 05/17/17 19:37> History of Present Illness Date: 05/17/17 [facility] Patient Stated Medical History Migraine Yes Other HEENT Yes: WEARS GLASSES Cardiac Arrhythmia Yes: AFIB Hypertension Yes Sleep Apnea Yes Hx Benign Prostatic Yes: possibly? Hyperplasia Hx Urinary Tract Infection Yes Clinic Medical History Atrial fibrillation with RVR (Acute Medical) HTN (hypertension) (Acute Medical) Essential (primary) hypertension (Acute Medical) Exam Vital Signs: Temperature 98.6 F 05/17/17 17:07 Pulse Rate 126 H 05/17/17 17:58 Respiratory Rate 20 05/17/17 17:07 Blood Pressure 128/79 05/17/17 17:58 Pulse Oximetry 95 05/17/17 17:58 Height/Weight/BMI: Height 1.85 m Weight 143.8 kg Body Mass Index 41.8 Results - Labs CBC & Chem 7: 05/17/17 15:21 05/17/17 15:21 Assessment and Plan (1) Atrial fibrillation with RVR Current visit: Yes Status: Acute (2) HTN (hypertension) Current visit: Yes Status: Acute (3) Essential (primary) hypertension Current visit: Yes Status: Acute Assessment and Plan: Assessment Atrial fibrillation with RVR Chronic anticoagulation with Xarelto CHF HTN Migraine headaches Morbid obesity with BMI 41.8 Have independently interviewed and examined patient. Chart reviewed. Case discussed with ED provider and my PA. Care plan developed with my supervision; agree with above. Noted FERRARA earlier today. Stared to feel weak and dizzy. No chest pressure or pain , but did feel his heart beating fast and irregular. Not feeling SOA. No recent viral syndrome. No f/c. Has been eating and drinking well. No increase edema to legs. Urinating well. Evaluated in ED and HR rapid in the 120-130 range. Persisted despite IV diltiazem. Dr Blake notified who recommended admission to better control HR. Chronically on Xarelto for anticoagulation. Lungs: clear CV: irregular, rapid AB: soft obese nt/nd MSE: awake alert appropriate Plan: OBS admission. Tele to monitor HR. Serial enzymes secondary to tachycardia. Consult with Dr Blake for treatment of RVR. Continue Xarelto. Will recheck CXR in am due to abnormality noted on single viewed in ED. Hospital Course Summary Disclaimer: The visit summary below is not to be considered part of the above Progress Note.
[2017-05-17 17:06] VITALS: BMI 41.8
[2017-05-17] MEDS ORDERED: NITROGLYCERIN 0.4 MG SUBLINGUAL TABLET SL PRN (17:31)
[2017-05-17] MEDS ORDERED: DILTIAZEM 120 MG PO ONE (18:10)
[2017-05-17] MEDS ORDERED: DiltiaZEM 25 MG/5 ML INJECTION IVP PRN (18:13)
[2017-05-17] MEDS ORDERED: ACETAMINOPHEN 325 MG TABLET PO PRN (19:09)
[2017-05-17] MEDS ORDERED: SOTALOL 120 MG TABLET PO SCH (20:00)
--- NOTE | 2017-05-17 20:18 | Cardiology Consult Note ---
History of Present Illness Consult date: 05/17/17 History of present illness: Mr. Barney is a very pleasant gentleman 77-year-old white male well-known to me with a history of extensive atrial tachyarrhythmias including atrial fibrillation and atrial flutter for which he underwent 2 separate successful ablations by Dr. Dr. Butterfield. He remains on chronic sotalol 120 mg twice a day back on his oral toe since a pulmonary embolus in September of this year. He was recently seen and diltiazem was discontinued apparently due to symptomatic relative hypotension. Today around 1:30 PM dying from noon to [facility] in [place]. 71 started feeling quite dizzy feeling about to blackout spell hit the brakes pulled over and his took over driving he also been complaining of migraine headache for the preceding half an hour. We are asked to [facility] was still not feeling well the checks his pulse found to be fast and ENT was activated found him to be in atrial fibrillation/flutter rate of 130s 140's so by the emergency room received IV diltiazem slowed his heart rate of 100 and teens he also received IV fluids for relative the low blood pressure and I was called in for additional management. Patient has been followed by and maintained on sotalol. He has a history of normal coronary angiogram. He also has Preserved LV function and no significant valvular dysfunction on the previous echocardiogram. See previous medical records( requested) He maintains a normal appetite and normal physical activity and reports no acute illness no fever chills night sweats no nausea vomiting diarrhea no hematochezia or melena no cough wheezing phlegm production or dyspnea has a chronic mild lower extremity edema no TIA or strokelike symptoms or history of the same. He has been compliant with his xarelto. He was his only on as well as his granddaughter's lawn and reports no exertional difficulties with angina or dyspnea At my request pacemaker interrogation was ordered which confirmed a new onset atrial fibrillation/flutter with RVR around 1:26 PM normal pacemaker function Review of Systems All systems PM: 10-point ROS was reviewed, no additional remarkable complaints except - Constitutional Constitutional: Present: weight loss (intentional weight loss of 24 pounds over the summer) - Cardiovascular Cardiovascular: Absent: chest pain, palpitations, syncope - Respiratory Respiratory: Absent: cough, dyspnea, wheezing - Gastrointestinal Gastrointestinal: Absent: change in bowel habits, coffee ground emesis, hematemesis, hematochezia [facility] Patient Stated Medical History Migraine Yes Other HEENT Yes: WEARS GLASSES Cardiac Arrhythmia Yes: AFIB Hypertension Yes Sleep Apnea Yes Hx Benign Prostatic Yes: possibly? Hyperplasia Hx Urinary Tract Infection Yes Clinic Medical History Atrial fibrillation with RVR (Acute Medical) HTN (hypertension) (Acute Medical) Essential (primary) hypertension (Acute Medical) Surgical History: L hernia repair. LTKA 07/2009. pacemaker implantation. cardiac ablation x 2 (Dr. Butterfield) for atrial flutter than for atrial fibrillation. Heart catheterization normal coronaries Family History Updates: Negative for heart disease or clotting disorder - Social History Smoking status: Never smoker Substance use type: does not use Alcohol intake frequency: does not drink Does patient use chewing tobacco?: No Current residence: Apartment/Private Home Medications Home Medications Medication Instructions Recorded Confirmed Type Pravastatin Sodium 20 mg PO HS #0 01/21/12 05/17/17 History Lisinopril 5 mg PO DAILY #0 02/04/14 05/17/17 History Nitroglycerin [Nitrostat] 1 tab SL Q5MIN3 PRN #0 02/05/14 05/17/17 History Furosemide 40 mg PO BID #0 tab 09/14/16 05/17/17 History Potassium Chloride 20 meq PO BIDWM #0 09/14/16 05/17/17 History Sotalol [Betapace] 120 mg PO BID #0 09/14/16 05/17/17 History Calcium Citrate/Vitamin D3 2 tab PO DAILY 05/17/17 05/17/17 History [Calcium Citrate-Vit D3 Caplet] Rivaroxaban [Xarelto] 20 mg PO DAILY 05/17/17 05/17/17 History Allergies Allergy/AdvReac Type Severity Reaction Status Date / Time shellfish derived Allergy Unknown ITCHING, Verified 05/17/17 15:01 SWELLING Exam Vital signs: Temperature 98.6 F 05/17/17 17:07 Pulse Rate 126 H 05/17/17 17:58 Respiratory Rate 20 05/17/17 17:07 Blood Pressure 128/79 05/17/17 17:58 Pulse Oximetry 95 05/17/17 17:58 - Constitutional no acute distress, well developed, morbidly obese - Routine HEENT Exam Head: Present: normocephalic, atraumatic Eye: Present: EOMI, PERRL ENT: Present: mucous membranes moist - Routine Neck Exam Present: supple, normal carotid upstroke. Absent: JVD, carotid bruit, lymphadenopathy, thyromegaly - Routine Chest/Breast/Axilla Exam Chest wall: Present: pacemaker (normal scar) - Routine Respiratory Exam Present: CTA bilaterally - Routine Cardiovascular Exam Present: no murmur, tachycardia. Absent: irregular rhythm - Routine Abdominal Exam Present: soft, normoactive bowel sounds, non distended, non tender. Absent: organomegaly - Routine Extremities Exam Present: edema (trivial edema in the ankles). Absent: cyanosis, clubbing - Routine Skin Exam Present: intact, cyanosis, dry. Absent: erythema - Routine Neurological Exam Present: alert, oriented X3, CN II-XII intact, moving all extremities, vision grossly intact, hearing grossly intact, normal speech. Absent: motor deficit, facial asymmetry - Routine Psychiatric Exam Present: normal affect, normal thought process, cooperative, good insight, good judgment Results 05/17/17 15:21 05/17/17 15:21 Intake and Output 05/17/17 05/17/17 05/17/17 06:59 14:59 22:59 Intake Total 500 / 500 Balance 500 / 500 Intake: IV 500 / 500 NS 500ml 500 ml @ 500 mls 500 / 500 /hr IV .Q1H ONE Rx#: [id number] Oral 0 / 0 Other: Weight 143.8 kg Patient Weight 05/18/17 06:59 Weight 143.8 kg - Imaging and Cardiology EKG results: pending, other (slow SVT with RBBB likely relatively slow atrial flutter caused by antiarrhythmic drug on board with 2-1 AV conduction allowing and RVR of about 130 beats per minutes) Assessment and Plan - Assessment and Plan Recurrent atrial tachyarrhythmias appears to be predominantly atrial flutter with RVR Permanent pacemaker in place Chronic anticoagulation History of atrial flutter and atrial fibrillation ablations History of pulmonary embolism History of normal coronary angiogram History of diastolic heart failure normal LV function Sleep apnea on CPAP machine Morbid obesity Intermittent relative hypotension Additional IV diltiazem ordered and consultation with emergency department team Pacemaker interrogation ordered Increase sotalol to 160 mg twice a day Continue Xarelto By mouth diltiazem extended release IV diltiazem when necessary see parameters Monitor blood pressure may need fluid boluses May need to DC cardioversion if atrial flutter persists, would likely need anesthesia involved for sedation due to his obesity/difficult airway and sleep apnea Office records requested Thank you Hospital Course Summary Disclaimer: The visit summary below is not to be considered part of the above Progress Note. Hospital Course: Assessment Atrial fibrillation with RVR Chronic anticoagulation with Xarelto CHF HTN Migraine headaches 05/17/17 - hospital admission for observation Admit to hospitalist service under observation status for telemetry and rate control. Dr. Black attending. Consult placed to Dr. Blake. [place] for VTE prophylaxis and chronic anticoagulation given his a-fib Follow serial troponins, repeat Mag, CBC and BMP in am. Continue home meds. Care to return to Dr. Aldana at time of discharge. Patient wishes to be a full code.
[2017-05-17] MEDS: --POM--FUROSEMIDE 40 MG TABLET PO SCH (20:49)
[2017-05-17] MEDS: --POM--PRAVASTATIN 20 MG TABLET PO SCH (20:49)
[2017-05-17] MEDS ORDERED: SOTALOL 80 MG TABLET PO ONE (21:00)
[2017-05-18] MEDS: SOTALOL 80 MG TABLET PO SCH ×2 (06:21→16:47)
[2017-05-18] MEDS ORDERED: --POM--LISINOPRIL 5 MG TABLET PO SCH (09:00)
--- NOTE | 2017-05-18 09:11 | XRay Report ---
INDICATION: ? abnormality of portable CXR PROCEDURE: CHEST 2-VIEWS UPRIGHT (PA & LAT) Encounter: Initial COMPARISON: May 17, 2017 FINDINGS: The area of nodularity seen on the prior study is obscured on the current exam by overlapping cardiac monitoring lead. Mild right basilar opacity persists. No new areas of infiltrate or pneumothorax. Heart size and mediastinal contours are stable. Pulmonary vascularity appears normal. Impression: No focal pneumonia. Prior area of right lung pulmonary nodules obscured by overlying monitoring lead on this study. Again a chest CT is recommended due to the findings on the prior CT study. .
[2017-05-18] MEDS: --POM--FUROSEMIDE 40 MG TABLET PO SCH ×2 (10:05→21:37)
[2017-05-18] MEDS: --POM--RIVAROXABAN 20 MG TABLET PO SCH ×2 (10:10→16:45)
--- NOTE | 2017-05-18 14:09 | Progress Note ---
<Nuria Reynolds V - Last Filed: 05/18/17 13:57> - Date 05/18/17 Subjective: Mr Barney is seen in follow up this afternoon as he eagerly awaits his planned cardioversion for this afternoon at 4. He is without any complaints today and denies chest pain, shortness of breath or palpations. Objective Vital signs: Temperature 98.8 F 05/18/17 07:00 Pulse Rate 81 05/18/17 12:20 Respiratory Rate 20 05/18/17 07:00 Blood Pressure 96/61 05/18/17 12:20 Pulse Oximetry 94 05/18/17 07:00 Height/Weight/BMI: Height 1.85 m Weight 143 kg Body Mass Index 41.8 - Constitutional Present: no acute distress, well nourished, well developed - Routine HEENT Exam Eye: Present: EOMI ENT: Present: mucous membranes moist, dentition normal - Routine Respiratory Exam Present: CTA bilaterally. Absent: wheezes - Routine Cardiovascular Exam Present: S1, S2, irregular rhythm. Absent: murmur - Routine Abdominal Exam Present: soft, normoactive bowel sounds, non distended. Absent: tenderness - Routine Extremities Exam Present: full ROM, normal capillary refill - Routine Back/Spine/Pelvis Exam Back/Spine: Present: full ROM - Routine Skin Exam Present: intact, dry, warm - Routine Neurological Exam Present: alert, oriented X3, CN II-XII intact, moving all extremities - Routine Lymphatic Exam Lymphatic: Absent: adenopathy - Routine Psychiatric Exam Present: normal affect, cooperative Results - Labs CBC & Chem 7: 05/18/17 04:08 05/18/17 04:08 Assessment and Plan (1) Atrial fibrillation with RVR Current visit: Yes Status: Acute (2) HTN (hypertension) Current visit: Yes Status: Acute (3) Essential (primary) hypertension Current visit: Yes Status: Acute Assessment and Plan: Assessment Atrial fibrillation with RVR Chronic anticoagulation with Xarelto CHF HTN Migraine headaches Morbid obesity with BMI 41.8 Plan Appreciate cardiology consult with Dr Blake. Serial troponins negative. Planning for cardioversion this afternoon. Continue Xarelto for anticoagulation Otherwise, medically stable without complaints Hospital Course Summary Disclaimer: The visit summary below is not to be considered part of the above Progress Note. Hospital Course: Assessment Atrial fibrillation with RVR Chronic anticoagulation with Xarelto CHF HTN Migraine headaches 05/17/17 - hospital admission for observation Admit to hospitalist service under observation status for telemetry and rate control. Dr. Black attending. Consult placed to Dr. Blake. Xarelto for VTE prophylaxis and chronic anticoagulation given his a-fib Follow serial troponins, repeat Mag, CBC and BMP in am. Continue home meds. Care to return to Dr. Aldana at time of discharge. Patient wishes to be a full code. 05/18/17 Plan Appreciate cardiology consult with Dr Blake. Serial troponins negative. Planning for cardioversion this afternoon. Continue Xarelto for anticoagulation Otherwise, medically stable without complaints <Xavier Black D - Last Filed: 05/18/17 17:23> - Date 05/18/17 Objective Vital signs: Temperature 98.6 F 05/18/17 15:28 Pulse Rate 78 05/18/17 16:47 Respiratory Rate 18 05/18/17 15:28 Blood Pressure 109/68 05/18/17 15:28 Pulse Oximetry 93 05/18/17 15:28 Results - Labs CBC & Chem 7: 05/18/17 04:08 05/18/17 04:08 Assessment and Plan (1) Atrial fibrillation with RVR Current visit: Yes Status: Acute (2) HTN (hypertension) Current visit: Yes Status: Acute (3) Essential (primary) hypertension Current visit: Yes Status: Acute Assessment and Plan: Assessment Atrial fibrillation with RVR Chronic anticoagulation with Xarelto CHF HTN Migraine headaches Morbid obesity with BMI 41.8 Have independently interviewed and examined pt. Chart reviewed. Case discussed with CM, Dr Blake and my PEDIATRIC IMMUNOLOGIST. Care plan developed with my supervision; agree with above. Doing well this evening. No chest pressure or pain. HR did decrease with Cardizem but still in afib. Dr Blake recommending cardioversion. Breathing well. No nausea or ab pain. Not feeling dizzy or unsteady when he is up, put does report he tries to get up slowly as he has been in bed more today that he typically is. Lungs: clear bilaterally. No distress on RA CV: irregularly irregular AB: soft nt/nd +BS MSE: awake alert appropriate Plan: Will change admission status to inpatient due to need for cardioversion. Continue with CV medications as per Dr Blake. Continue with tele to monitor heart rate and rhythm. DVT Prophylaxis: Xarelto - Time spent with patient Time with patient PN: 15 minutes Hospital Course Summary Disclaimer: The visit summary below is not to be considered part of the above Progress Note.
--- NOTE | 2017-05-18 15:29 | Anesthesia Preoperative Report ---
Anesthesia Preoperative Record - Date and Time Date: 05/18/17 Preoperative Diagnosis: afib with rvr Proposed Procedure: Cardioversion NPO Since Date: 05/18/17 NPO Since Time: 00:00 Allergies/Adverse Reactions: Allergies Allergy/AdvReac Type Severity Reaction Status Date / Time shellfish derived Allergy Unknown ITCHING, Verified 05/17/17 15:01 SWELLING - Vital Signs Vital Signs: Temperature 98.8 F 05/18/17 07:00 Pulse Rate 81 05/18/17 12:20 Respiratory Rate 20 05/18/17 07:00 Blood Pressure 96/61 05/18/17 12:20 Pulse Oximetry 94 05/18/17 07:00 - Medications Inpatient Medications: Current Medications Acetaminophen (Tylenol) 650 mg PO Q5H PRN PRN Reason: Discomfort Diltiazem HCl (Cardizem Cd) 300 mg PO DAILY [facility] Last Admin: 05/18/17 10:03 Dose: 300 mg Diltiazem HCl (Cardizem) 15 mg IVP Q4H PRN Furosemide (Lasix) 40 mg PO BID [facility] Last Admin: 05/18/17 10:05 Dose: 40 mg Lisinopril (Prinivil) 5 mg PO DAILY [facility] Last Admin: 05/18/17 10:06 Dose: 5 mg Nitroglycerin (Nitrostat) 0.4 mg SL Q5MIN3 PRN PRN Reason: Chest tightness Potassium Chloride (K-Dur) 20 meq PO BIDWM [facility] Last Admin: 05/18/17 10:03 Dose: 20 meq Pravastatin Sodium (Pravachol) 20 mg PO HS [facility] Last Admin: 05/17/17 20:49 Dose: 20 mg Rivaroxaban (Xarelto) 20 mg PO WS [facility] Last Admin: 05/18/17 10:10 Dose: 20 mg Sodium Chloride (Iv Flush) 10 - 80 ml IVF PRN PRN PRN Reason: Flushing Last Admin: 05/17/17 20:51 Dose: 10 ml Sotalol HCl (Betapace) 160 mg PO ACBID [facility] Last Admin: 05/18/17 06:21 Dose: 160 mg Home Medications: Home Medications Medication Instructions Recorded Confirmed Type Pravastatin Sodium 20 mg PO HS #0 01/21/12 05/17/17 History Lisinopril 5 mg PO DAILY #0 02/04/14 05/17/17 History Nitroglycerin [Nitrostat] 1 tab SL Q5MIN3 PRN #0 02/05/14 05/17/17 History Furosemide 40 mg PO BID #0 tab 09/14/16 05/17/17 History Potassium Chloride 20 meq PO BIDWM #0 09/14/16 05/17/17 History Sotalol [Betapace] 120 mg PO BID #0 09/14/16 05/17/17 History Calcium Citrate/Vitamin D3 2 tab PO DAILY 05/17/17 05/17/17 History [Calcium Citrate-Vit D3 Caplet] Rivaroxaban [Xarelto] 20 mg PO DAILY 05/17/17 05/17/17 History Is Patient on Beta Alma?: Yes Beta [place]ma Last Dose Date/Time: 05/18/17 - Medical History Respiratory: Reports: Pulmonary Embolism Cardiovascular: Reports: Arrhythmia (A-fib with RVR), Other (L heart failure) Gastrointestional: Reports: Morbid Obesity Neuro/Musculoskeletal: Denies: HX.MS.OSAR, Back Problems, Cerebrovascular Accident, Depression, Headaches, Loss of Consciousness, Muscle Weakness, Neuromuscular Disorder, Paralysis, Paresthesia, Syncope, Seizures, Other Renal/Endocrine: DENIES: Diabetes Mellitus Type 1, Diabetes Mellitus Type 2, Renal Failure, Dialysis, Thyroid Disease, Weight Loss, Weight Gain, Other Other History: DENIES: Anesthesia Reactions, Now, Blood Transfusions, Chemotherapy , Cancer, Hemophilia, Malignant Hyperthermia, Sickle Cell Disease, Other - Surgical History Cardiac Surgeries/Treatments: Reports: Cardiac Catheterization (ABLASION), Pacemaker Respiratory Surgery/Treatments: Reports: CPAP Use GI Surgery/Treatments: Reports: Hernia Repair Musculoskeletal Surgery/Tx: Reports: Total Knee Replacement (LEFT) Anesthesia Reactions: None Hx Family Anesthesia Reaction: No History of Motion Sickness: No - Social History Smoking Status: Never smoker Hx Chewing Tobacco Use: No Substance Use Type: does not use Alcohol Intake Frequency: does not drink - Pertinent Findings EKG: A-fib - Physical Exam Respiratory Exam: Present: lungs clear, bilateral breath sounds equal Cardiovascular Exam: Present: irregularly irregular, no murmur - Airway Assessment Mallampati Score: II TMD: 3 Fingerbreadths Neck Extension: fair Overall Assessment: may be difficult intubation - ASA ASA Score: 2, E - Plan Anesthesia: General TIVA - Discussion Discussion: Discussed risks/options/alternatives of anesthesia and questions answered. Patient consents. Nursing pain assessment noted. Present for Discussion: spouse Attestation Statement: Prior to the delivery of any anesthetic medication, I examined the patient, developed the plan, obtained the patient's consent and discussed the risk and benefits of the procedure with the patient/guardian. - Additional Information Seen by Anesthesia: Yes
--- NOTE | 2017-05-18 18:02 | Cardiology Progress Note ---
Subjective Interval history: sharad had a good day and hes feeling much better. denies cp or dyspnea. denies palpitations or dizziness. BP has been running rleatively low 90-100's HR better on Diltiazem and incraesed BB. I made him NPO for CV. 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 outpt records show that Diltiazem was stopped about 3 wks ago d/t orthostatic symptoms (positional dizziness) and relative hypotension Exam Vital signs: Temperature 98.6 F 05/18/17 15:28 Pulse Rate 93 05/18/17 17:00 Respiratory Rate 18 05/18/17 15:28 Blood Pressure 109/68 05/18/17 15:28 Pulse Oximetry 93 05/18/17 15:28 - Constitutional no acute distress, morbidly obese - Routine HEENT Exam Head: Present: normocephalic, atraumatic Eye: Present: EOMI, PERRL ENT: Present: mucous membranes moist - Routine Neck Exam Present: normal carotid upstroke. Absent: JVD, carotid bruit - Routine Chest/Breast/Axilla Exam Chest wall: Present: pacemaker - Routine Respiratory Exam Present: CTA bilaterally - Routine Cardiovascular Exam Present: irregular rhythm. Absent: RRR - Routine Abdominal Exam Present: soft, normoactive bowel sounds, non distended, non tender. Absent: organomegaly, mass - Routine Extremities Exam Present: edema (trace ankle edema B). Absent: cyanosis, clubbing - Routine Skin Exam Present: intact, dry. Absent: cyanosis, erythema - Routine Neurological Exam Present: alert, oriented X3, CN II-XII intact, moving all extremities, vision grossly intact, hearing grossly intact. Absent: motor deficit, facial asymmetry - Routine Psychiatric Exam Present: normal affect, normal thought process, cooperative, good insight, good judgment Assessment and Plan - Assessment and Plan (1) Atrial fibrillation and flutter Current visit: Yes Status: Acute (2) Atrial fibrillation with RVR Current visit: Yes Status: Acute rate controlled and anticoagulated. CV couldnt be done today d/t staffing issues rescheduled for tomorrow am d/c lisinopril d/t relative hypotension will lower Cardizem to 180 mg daily and watch HR keep IV Cardizem PRN CV tomorrow pt undertsands risks and benfits and possible complications including about 1% risk for stroke and agrees to proceed (3) Cardiac pacemaker in situ Current visit: Yes Status: Chronic Hospital Course Summary Disclaimer: The visit summary below is not to be considered part of the above Progress Note. Hospital Course: Assessment Atrial fibrillation with RVR Chronic anticoagulation with Xarelto CHF HTN Migraine headaches 05/17/17 - hospital admission for observation Admit to hospitalist service under observation status for telemetry and rate control. Dr. Black attending. Consult placed to Dr. Blake. Xarelto for VTE prophylaxis and chronic anticoagulation given his a-fib Follow serial troponins, repeat Mag, CBC and BMP in am. Continue home meds. Care to return to Dr. Aldana at time of discharge. Patient wishes to be a full code. 05/18/17 Plan Appreciate cardiology consult with Dr Blake. Serial troponins negative. Planning for cardioversion this afternoon. Continue Xarelto for anticoagulation Otherwise, medically stable without complaints
[2017-05-18] MEDS: --POM--PRAVASTATIN 20 MG TABLET PO SCH (21:37)
[2017-05-19] MEDS: SOTALOL 80 MG TABLET PO SCH ×2 (06:02→17:14)
[2017-05-19 09:01] VITALS: O2SAT 95
[2017-05-19] MEDS: --POM--FUROSEMIDE 40 MG TABLET PO SCH (10:40)
--- NOTE | 2017-05-19 12:03 | Cardiology Progress Note ---
Subjective Interval history: Mr. Barney is feeling much better today. He says he can feel his heart beating anymore. He has been up and about denies dizziness lightheadedness shortness of breath or chest pain. Dual-chamber pacemaker interrogation today confirmed sinus rhythm/atrial paced rhythm with a long FL interval of 380 ms, this pacemaker doesn't have MVP feature. Wenckebach rate was 130 pulses permits programmed to a maximum of 120 maximum tracking heart rate. Normal sensing and pacing parameters. Patient did go in sinus rhythm this morning. 12-lead EKG confirms atrial paced rhythm with long AR interval 380 ms His blood pressure in the upper 90s on 100s this morning. His lisinopril was just discontinued and the diltiazem and dropped to 180 mg daily yesterday. Patient anxious to go home. He is a previous cardiac records were reviewed coronary angiogram from 2013 showed normal coronaries Exam Vital signs: Temperature 98.1 F 05/19/17 07:00 Pulse Rate 123 H 05/19/17 09:00 Respiratory Rate 18 05/19/17 07:00 Blood Pressure 93/63 05/19/17 07:00 Pulse Oximetry 95 05/19/17 07:00 - Constitutional no acute distress, morbidly obese - Routine HEENT Exam Head: Present: normocephalic, atraumatic Eye: Present: EOMI, PERRL ENT: Present: mucous membranes moist - Routine Neck Exam Present: supple, normal carotid upstroke. Absent: JVD, carotid bruit, lymphadenopathy, thyromegaly - Routine Respiratory Exam Present: CTA bilaterally - Routine Cardiovascular Exam Present: RRR, no murmur. Absent: click - Routine Abdominal Exam Present: soft, normoactive bowel sounds, non distended, non tender. Absent: organomegaly, mass - Routine Extremities Exam Present: no edema, non tender. Absent: cyanosis, clubbing - Routine Skin Exam Present: intact, dry. Absent: cyanosis, erythema, pallor - Routine Neurological Exam Present: alert, oriented X3, CN II-XII intact, moving all extremities, vision grossly intact, hearing grossly intact, normal speech. Absent: motor deficit, altered mental status, hemineglect, facial asymmetry, tremors - Routine Psychiatric Exam Present: normal affect, normal thought process, cooperative, good insight, good judgment Results 05/18/17 04:08 05/18/17 04:08 Intake and Output 05/18/17 05/19/17 05/19/17 22:59 06:59 14:59 Intake Total 468 / 468 Output Total 175 / 175 425 / 425 Balance 293 / 293 -425 / -425 Intake: Oral 468 / 468 Output: Urine 175 / 175 425 / 425 Other: Urine Appearance Clear Clear Urine Color Light Charlotte Light Charlotte Urine Odor Normal Normal Weight 141.4 kg Patient Weight 05/20/17 06:59 Weight 141.4 kg - Imaging and Cardiology Echo: report reviewed EKG results: report reviewed, image reviewed, other (telemetry reviewed) - EKG Interpretation EKG: sinus rhythm (/atrial paced) Assessment and Plan - Assessment and Plan (1) Atrial fibrillation and flutter Current visit: Yes Status: Acute Recurrent A. fib/flutter with RVR and status post previous atrial flutter ablation and atrial fibrillation ablation by Dr. Butterfield. Patient this morning, Converted to normal sinus rhythm/atrial paced with long FL interval We'll keep him on increased dose of sotalol Xarelto and the reduced dose diltiazem currently 180 mg daily Lisinopril was discontinued yesterday I will ambulate the patient and recommended to discharge home and this evening if no recurrent atrial fibrillation or symptomatic hypotension Recommend blood pressure recheck with her PCP on Monday if blood pressure under 110 or symptomatic may lower his Cardizem to 120 mg daily Patient will keep his appointment coming up with me on 06/01/2017 office recheck sooner should new problem is arise. Thank you (2) Atrial fibrillation with RVR Current visit: Yes Status: Acute (3) Cardiac pacemaker in situ Current visit: Yes Status: Chronic Hospital Course Summary Disclaimer: The visit summary below is not to be considered part of the above Progress Note. Hospital Course: Assessment Atrial fibrillation with RVR Chronic anticoagulation with Xarelto CHF HTN Migraine headaches 05/17/17 - hospital admission for observation Admit to hospitalist service under observation status for telemetry and rate control. Dr. Black attending. Consult placed to Dr. Blake. Flaquito for VTE prophylaxis and chronic anticoagulation given his a-fib Follow serial troponins, repeat Mag, CBC and BMP in am. Continue home meds. Care to return to Dr. Aldana at time of discharge. Patient wishes to be a full code. 05/18/17 Plan Appreciate cardiology consult with Dr Blake. Serial troponins negative. Planning for cardioversion this afternoon. Continue Xarelto for anticoagulation Otherwise, medically stable without complaints
--- NOTE | 2017-05-19 12:25 | Cardiology Progress Note ---
Subjective Interval history: Dual-chamber permanent pacemaker interrogation and analysis and reprogramming Dual-chamber pacemaker interrogation today confirmed sinus rhythm/atrial paced rhythm with a long [place] interval of 380 ms, this pacemaker doesn't have MVP feature. Wenckebach rate was 130 pulses permits programmed to a maximum of 120 maximum tracking heart rate. Normal sensing and pacing parameters. Patient did go in sinus rhythm this morning. I was physically at the bedside in the catheter lab during pacemaker check and reviewed all the degenerated data Cardioversion was obvious he canceled as the patient is in sinus rhythm now Time of care discussed with the primary service Exam Vital signs: Temperature 98.1 F 05/19/17 07:00 Pulse Rate 123 H 05/19/17 09:00 Respiratory Rate 18 05/19/17 07:00 Blood Pressure 93/63 05/19/17 07:00 Pulse Oximetry 95 05/19/17 07:00 Results 05/18/17 04:08 05/18/17 04:08 Intake and Output 05/18/17 05/19/17 05/19/17 22:59 06:59 14:59 Intake Total 468 / 468 Output Total 175 / 175 425 / 425 Balance 293 / 293 -425 / -425 Intake: Oral 468 / 468 Output: Urine 175 / 175 425 / 425 Other: Urine Appearance Clear Clear Urine Color Light [place] Light Charlotte Urine Odor Normal Normal Weight 141.4 kg Patient Weight 05/20/17 06:59 Weight 141.4 kg Assessment and Plan - Assessment and Plan (1) Atrial fibrillation and flutter Current visit: Yes Status: Acute (2) Atrial fibrillation with RVR Current visit: Yes Status: Acute (3) Cardiac pacemaker in situ Current visit: Yes Status: Chronic Hospital Course Summary Disclaimer: The visit summary below is not to be considered part of the above Progress Note. Hospital Course: Assessment Atrial fibrillation with RVR Chronic anticoagulation with Xarelto CHF HTN Migraine headaches 05/17/17 - hospital admission for observation Admit to hospitalist service under observation status for telemetry and rate control. Dr. Black attending. Consult placed to Dr. Blake. Flaquito for VTE prophylaxis and chronic anticoagulation given his a-fib Follow serial troponins, repeat Mag, CBC and BMP in am. Continue home meds. Care to return to Dr. Aldana at time of discharge. Patient wishes to be a full code. 05/18/17 Plan Appreciate cardiology consult with Dr Blake. Serial troponins negative. Planning for cardioversion this afternoon. Continue Xarelto for anticoagulation Otherwise, medically stable without complaints
--- NOTE | 2017-05-19 14:43 | Progress Note ---
- Date 05/19/17 Subjective: F/U: Afib with RVR Doing well this afternoon. Did not have cardioversion today as converted spontaneously. Does feel better now that heart is in sinus rhythm. No chest pressure or pain. Breathing well. Has been ambulating in [place] this afternoon and doing well with these activities. Eating well. No nausea or ab pain. Objective Vital signs: Temperature 98.1 F 05/19/17 07:00 Pulse Rate 123 H 05/19/17 09:00 Respiratory Rate 18 05/19/17 07:00 Blood Pressure 93/63 05/19/17 07:00 Pulse Oximetry 95 05/19/17 07:00 Height/Weight/BMI: Weight 141.4 kg - Constitutional Present: well nourished, well developed, morbidly obese, cooperative. Absent: combative, agitated - Routine HEENT Exam Head: Present: normocephalic, atraumatic Eye: Present: EOMI, PERRL ENT: Present: mucous membranes moist - Routine Respiratory Exam Present: CTA bilaterally. Absent: rales, respiratory distress, rhonchi, wheezes , crackles - Routine Cardiovascular Exam Present: RRR, no murmur - Routine Abdominal Exam Present: soft, normoactive bowel sounds, non distended, non tender. Absent: rebound, guarding - Routine Extremities Exam Present: pulses intact. Absent: cyanosis, clubbing - Routine Musculoskeletal Exam Musculoskeletal: Present: no clubbing or cyanosis, normal strength - Routine Skin Exam Present: dry, warm - Routine Neurological Exam Present: alert, oriented X3, CN II-XII intact, moving all extremities, vision grossly intact, hearing grossly intact. Absent: motor deficit, altered mental status - Routine Psychiatric Exam Present: normal affect, normal thought process, cooperative, good insight, good judgment Results - Labs CBC & Chem 7: 05/18/17 04:08 05/18/17 04:08 Assessment and Plan (1) Atrial fibrillation with RVR Current visit: Yes Status: Acute (2) HTN (hypertension) Current visit: Yes Status: Acute (3) Essential (primary) hypertension Current visit: Yes Status: Acute Assessment and Plan: Assessment Atrial fibrillation with RVR Chronic anticoagulation with Xarelto CHF HTN Migraine headaches Morbid obesity with BMI 41.8 Plan Cardioversion canceled as patient spontaneously converted to NSR. Case discussed with Dr Blake - he has stopped lisinopril as BP on low side. Recommends continuing increased Sotalol at 160mg BID and Cardizem at 180mg daily. Will continue with Xarelto for anticoagulation as prior to admission. Follow up appointment made with Dr Blake on 06/01/17. Encourage ambulation while on tele to be certain patient stays in NSR. Hope for discharge home later this afternoon if continues to do well. Case discussed with Dr Blake. Time spent with patient care 25 minutes. DVT Prophylaxis: Xarelto Resuscitation Status: Full Code Hospital Course Summary Disclaimer: The visit summary below is not to be considered part of the above Progress Note. Hospital Course: Assessment Atrial fibrillation with RVR Chronic anticoagulation with Xarelto CHF HTN Migraine headaches 05/17/17 - hospital admission for observation Admit to hospitalist service under observation status for telemetry and rate control. Dr. Black attending. Consult placed to Dr. Blake. Xarelto for VTE prophylaxis and chronic anticoagulation given his a-fib. Follow serial troponins, repeat Mag, CBC and BMP in am. Continue home meds. Care to return to Dr. Aldana at time of discharge. Patient wishes to be a full code. 05/18/17 Admission status changed to inpatient as anticipating cardioversion this afternoon. Appreciate cardiology consult with Dr Blake. Serial troponins negative. Planning for cardioversion this afternoon. Continue Xarelto for anticoagulation. Otherwise, medically stable without complaints. Cardioversion unable to be preformed afternoon of 05/18/17 - rescheduled for 05/19. 05/19/17 Cardioversion canceled as patient spontaneously converted to NSR. Case discussed with Dr Blake - he has stopped lisinopril as BP on low side. Recommends continuing increased Sotalol at 160mg BID and Cardizem at 180mg daily. Will continue with Xarelto for anticoagulation as prior to admission. Follow up appointment made with Dr Blake on 06/01/17. Encourage ambulation while on tele to be certain patient stays in NSR. Hope for discharge home later this afternoon if continues to do well.
[2017-05-19 16:04] VITALS: BP 124/75; PULSE 86; RESP 20; TEMP 96.9
[2017-05-19] MEDS: --POM--RIVAROXABAN 20 MG TABLET PO SCH (17:14)
--- NOTE | 2017-05-19 18:22 | Discharge Summary ---
Discharge Information Date of admission: 05/18/17 14:00 Anticipated date of discharge: 05/19/17 Attending Physician: Xavier Black MD Primary care physician: Chicho Aldana MD Consults: Dr Blake - Discharge Diagnosis (1) Atrial fibrillation with RVR Status: Acute (2) HTN (hypertension) Status: Acute (3) Essential (primary) hypertension Status: Acute Discharge diagnosis Atrial fibrillation with RVR Spontaneously converted to NSR on 05/19/17 with increase Sotalol and Cardizem Associated conditions and complications Chronic anticoagulation with Xarelto CHF HTN Migraine headaches MARISOL treated with CPAP Morbid obesity with BMI 41.8 - Laboratory Labs: Admit Lab 05/17/17 15:21 WBC 7.1 Hgb 15.5 Hct 46.4 MCV 88.5 Plt Count 225 Neut % (Auto) 63.1 Lymph % (Auto) 22.7 L Dickinson % (Auto) 11.5 H Eos % (Auto) 2.0 Baso % (Auto) 0.4 Admit Lab 05/17/17 05/17/17 15:16 15:21 Sodium 139 Potassium 4.1 Chloride 105 Carbon Dioxide 26 Anion Gap 8 BUN 20.0 Creatinine 1.2 GFR Calculation 59 BUN/Creatinine Ratio 17 Glucose 98 Calculated Osmolality 271 Calcium 9.4 Magnesium 2.1 Total Bilirubin 0.30 AST 33 ALT 58 Alkaline Phosphatase 89 Troponin I < 0.012 B-Natriuretic Peptide 338 H Total Protein 7.0 TSH 05/18/17 04:08 TSH 0.70 - Radiology Radiology: Date of Exam: 05/17/17 PROCEDURE: XR chest 1V Findings: Rectangular 1.3 cm density projecting over the right upper lung field is new from the prior study. This projects between the sixth and seventh posterior ribs. Prior right basilar airspace opacity has cleared. The prior right lower lobe pulmonary nodule seen on CT is not visible radiographically. No pleural effusion or pneumothorax. Cardiac silhouette remains enlarged. Left pacemaker. Mediastinal contours are stable. Pulmonary vascularity appears normal. Impression: 1. No pneumonia or congestive failure. 2. Possible new right upper lobe pulmonary nodule versus artifact or object external to the patient. Given the concerning appearing right lower lobe pulmonary nodule seen on the prior CT follow-up chest CT is recommended if this has not been performed recently. History of Present Illness HPI: Patient is a 77 yo male with known h/o atrial fibrillation who had some blurry vision earlier today, followed by some numbness and a headache which he reports is typical for his migraines. States he was feeling this way around noon. Around 2pm, he was driving to [employer] and felt that his vision went dark for about 5 seconds. Had some dizziness associated with it as well. When he got to [employer] they called EMS and he was found to have afib w/ RVR with pulse of 115 -130. He has had no chest pain or SOA. He was brought to ER and given NS bolus of 500mg and 10mg IV Cardizem which brought pulse down to 100's and he is feeling better. EKG shows afib with RVR, RBBB (on previous EKG.) No h/o CA or stents. Has had ablation x [address] Butterfield. Is on Xarelto chronically since PE in September 30. Of note, patient had a finding on CT in September 2016 thought to be a pulmonary nodule which was followed up with PET scan, which, per patient, was negative. For complete details of the H&P refer to that document. Objective Vital signs: Temperature 96.9 F 05/19/17 15:00 Pulse Rate 86 05/19/17 17:14 Respiratory Rate 20 05/19/17 15:00 Blood Pressure 124/75 05/19/17 15:00 Pulse Oximetry 95 05/19/17 15:00 Height/Weight/BMI: Weight 141.4 kg Hospital Course This is a general summary of the patient's hospital course. For more details refer to the complete medical record. Hospital course: Assessment Atrial fibrillation with RVR Chronic anticoagulation with Xarelto CHF HTN Migraine headaches 05/17/17 - hospital admission for observation Admit to hospitalist service under observation status for telemetry and rate control. Dr. Black attending. Consult placed to Dr. Blake. Xarelto for VTE prophylaxis and chronic anticoagulation given his a-fib. Follow serial troponins, repeat Mag, CBC and BMP in am. Continue home meds. Care to return to Dr. Aldana at time of discharge. Patient wishes to be a full code. 05/18/17 Admission status changed to inpatient as anticipating cardioversion this afternoon. Appreciate cardiology consult with Dr Blake. Serial troponins negative. Planning for cardioversion this afternoon. Continue Xarelto for anticoagulation. Otherwise, medically stable without complaints. Cardioversion unable to be preformed afternoon of 05/18/17 - rescheduled for 05/19. 05/19/17 Cardioversion canceled as patient spontaneously converted to NSR. Case discussed with Dr Blake - he has stopped lisinopril as BP on low side. Recommends continuing increased Sotalol at 160mg BID and Cardizem at 180mg daily. Will continue with Xarelto for anticoagulation as prior to admission. Follow up appointment made with Dr Blake on 06/01/17. Encourage ambulation while on tele to be certain patient stays in NSR. HR remained in NSR. Patient ambulating in halls well. Blood pressure stable. Will discharge to home. See orders for details. Time spent with patient: discharge greater than 30 minutes DVT Prophylaxis: Xarelto Discharge Plan - Discharge Disposition Discharge Date: 05/19/17 Disposition: 01 Discharged Home, Self-Care *Condition: Improved *Reason For Visit: afib with rvr - Discharge Medications *Discharge Medications: New Sotalol [Betapace] 160 mg PO ACBID #120 tab DiltiaZEM CD [Cardizem Cd] 180 mg PO DAILY #30 cap Continue Pravastatin Sodium 20 mg PO HS #0 Furosemide 40 mg PO BID #0 tab Potassium Chloride 20 meq PO BIDWM #0 Calcium Citrate/Vitamin D3 [Calcium Citrate-Vit D3 Caplet] 2 tab PO DAILY Rivaroxaban [Xarelto] 20 mg PO DAILY Nitroglycerin [Nitrostat] 1 tab SL Q5MIN3 PRN #0 PRN Reason: CHEST TIGHTNESS Discontinued Sotalol [Betapace] 120 mg PO BID #0 Lisinopril 5 mg PO DAILY #0 - Discharge Packet/Instructions *Diet: Low sodium *Activity: As tolerated *Pain Management/Treatment: Tylenol as needed for pain *Wound Care: n/a *Expected Signs/Symptoms: Continued normal sinus rhythm of heart *Notify Physician if: Chest pain/pressure. Rapid heart rate. Passing out. Dizziness with positional changes. *During Business Hours Contact: Dr Blake *After Business Hours Contact: [place] [facility] [place] or his covering physician paged *Pending Lab/Results: No Pending Lab - Referrals/Follow Up *Referrals/Follow Up: Alana Blake MD [Physician] - (Keep apt with Dr Blake on 06/01/17 as scheduled ) - Patient Handouts Patient Handouts: A-fib (Atrial Fibrillation) (GEN) - Dismissal Complete Discharge Instructions are:: Incomplete Attestation Narriative - Attestation Attestation Narrative: 05/19/17 18:26 I have independently interviewed and examined patient prior to discharge. See my progress note for details. Medically stable for discharge to home.
== END 2017-05-19 19:00 | disposition home or self-care (01) | DRG 309 ==
LOC: ED 14:55 → MED 14:55
PROVIDERS: ADMIT Hospitalist; ATTEND Hospitalist